=== PATIENT | female | born 1935 | race Caucasian/White ===

== ENCOUNTER 2021-11-25 10:45 | Outpatient (RCR) | payer MEDICARE, BC, SELFPAY | END 2022-10-19 08:43 | disposition home or self-care (01) | PROVIDERS: PCP Family Medicine; Visit Provider Orthopaedic Surgery Sports Medicine | DX: M40.209 Unspecified kyphosis, site unspecified (principal); M54.9 Dorsalgia, unspecified; G89.29 Other chronic pain; M25.511 Pain in right shoulder; M25.512 Pain in left shoulder; R53.1 Weakness; R26.9 Unspecified abnormalities of gait and mobility; Z51.89 Encounter for other specified aftercare | CPT/HCPCS: 97110; 97140 ==

== ENCOUNTER 2021-12-20 10:32 | Outpatient (CLI) | payer MEDICARE, BC, SELFPAY ==
--- NOTE | 2021-12-20 10:59 | CRLHL7_ITS ---
For Patients: As a result of the Cures Act, medical imaging exams and procedure reports are released immediately into your electronic medical record. You may view this report before your referring provider. If you have questions, please contact your health care provider. DIGITAL DIAGNOSTIC LEFT MAMMOGRAM WITH TOMOSYNTHESIS AND COMPUTER-AIDED DETECTION CLINICAL HISTORY: LEFT breast lumpectomy follow-up. COMPARISON: 12/17/2020, 12/17/2019. TECHNIQUE: Digital LEFT mammogram in two projections. Tomosynthesis utilized. BREAST COMPOSITION: There are areas of scattered fibroglandular density. FINDINGS: Normal fibroglandular tissue. Benign calcifications. No adenopathy or architectural distortion. IMPRESSION: Unremarkable LEFT breast mammograms. No evidence of malignancy. RECOMMENDATIONS: Routine screening mammography. Results and recommendations were discussed with the patient at the time of the exam. BI-RADS Category 2: Benign A lay language report of this examination will be provided to the patient. Dictated by Doug Ramos MD @ 12/20/2021 12:18:03 PM jj/Dictated by: Doug Ramos MD @ 12/20/2021 12:18:00 PM (Electronically Signed)
== END 2021-12-20 10:33 | disposition home or self-care (01) ==
LOC: MAMMO 10:35
PROVIDERS: PCP Family Medicine; Visit Provider Internal Medicine Hematology & Oncology
DX: Z85.3 Personal history of malignant neoplasm of breast (principal)
CPT/HCPCS: 77065; G0279

== ENCOUNTER 2022-01-13 10:25 | Outpatient (RCR) | payer MEDICARE, BC, SELFPAY | END 2022-07-12 23:59 | disposition home or self-care (01) | LOC: CCIC 10:25 | PROVIDERS: PCP Family Medicine; Visit Provider Internal Medicine Hematology & Oncology | DX: C50.919 Malignant neoplasm of unspecified site of unspecified female breast (principal); Z17.0 Estrogen receptor positive status [ER+] | CPT/HCPCS: 99212; 99214 ==

== ENCOUNTER 2022-04-12 11:22 | Outpatient (CLI) | payer MEDICARE, BC, SELFPAY ==
[2022-04-12 21:51] LABS: Chloride* 110 mmol/L (96-114); Sodium* 143 mmol/L (135-149)
[2022-04-12 21:52] LABS: Potassium* 4.3 mmol/L (3.6-5.1)
[2022-04-12 21:54] LABS: Alanine Aminotransferase* 15 U/L (4-35); Alkaline Phosphatase* 75 U/L (40-150); Aspartate Amino Transferase* 20 U/L (12-35); Bilirubin Total* 0.6 mg/dL (0.1-1.5); Blood Urea Nitrogen* 22 mg/dL (7-30); Calcium* 10.9 mg/dL (8.4-10.6); Carbon Dioxide* 26 mmol/L (20-32); Creatinine* 0.8 mg/dL (0.5-1.5); Estimated Glomerular Filt Rate 72 ml/min; Glucose* 109 mg/dL (60-115); Total Protein* 6.5 g/dL (6.0-8.3)
== END 2022-04-12 11:23 | disposition home or self-care (01) ==
PROVIDERS: PCP Family Medicine; Visit Provider Family Medicine
DX: I10 Essential (primary) hypertension (principal); K59.00 Constipation, unspecified; R07.89 Other chest pain
CPT/HCPCS: 80053

== ENCOUNTER 2022-04-19 15:09 | Outpatient (CLI) | payer MEDICARE, BC, SELFPAY ==
[2022-04-19 22:05] LABS: Vitamin D 25 Hydroxy* 65 ng/mL (30-80)
== END 2022-04-19 15:10 | disposition home or self-care (01) ==
PROVIDERS: PCP Family Medicine; Visit Provider Emergency Medicine
DX: E83.52 Hypercalcemia (principal)
CPT/HCPCS: 82306; 82310; 83970

== ENCOUNTER 2022-05-24 15:05 | Outpatient (CLI) | payer MEDICARE, BC, SELFPAY ==
[2022-05-24 22:05] LABS: Calcium* 10.2 mg/dL (8.4-10.6)
[2022-05-24 22:16] LABS: NT Pro B Type NatriureticPept* 2840 pg/mL
== END 2022-05-24 15:06 | disposition home or self-care (01) ==
PROVIDERS: PCP Family Medicine; Visit Provider Family Medicine
DX: I71.20 Thoracic aortic aneurysm, without rupture, unspecified (principal); R60.0 Localized edema; R06.09 Other forms of dyspnea; I10 Essential (primary) hypertension
CPT/HCPCS: 82310; 83880; 84443

== ENCOUNTER 2022-06-03 14:08 | Outpatient (CLI) | payer MEDICARE, BC, SELFPAY | END 2022-06-03 14:09 | disposition home or self-care (01) | LOC: RAD 14:08 | PROVIDERS: PCP Family Medicine; Visit Provider Family Medicine | DX: R06.02 Shortness of breath (principal); I51.7 Cardiomegaly; I35.1 Nonrheumatic aortic (valve) insufficiency; I31.39 Other pericardial effusion (noninflammatory) | CPT/HCPCS: 93306 ==

== ENCOUNTER 2022-10-27 13:43 | Outpatient (CLI) | payer MEDICARE, BC, SELFPAY ==
--- NOTE | 2022-10-27 14:00 | CRLHL7_ITS ---
For Patients: As a result of the Century Cures Act, medical imaging exams and procedure reports are released immediately into your electronic medical record. You may view this report before your referring provider. If you have questions, please contact your health care provider. DXA BONE MINERAL DENSITY STUDY Reason for exam: History of breast cancer. Current height (in): 63. Weight (lb): 208. Menopause age: 50. Ethnicity: White. 1. Have you had a previous hip or vertebral fracture? No. 2. Have you had any fractures during your adult life which did not result from significant trauma (e.g., auto accident)? No. 3. Did either of your parents have a hip fracture? No. 4. Do you smoke? No. 5. Have you ever taken Glucocorticoids? No. 6. Do you have rheumatoid arthritis? No. 7. Do you have secondary osteoporosis? No. 8. Do you drink 3 or more alcoholic drinks per day? No. 9. Are you being treated for osteoporosis? No. 10. Have you ever taken any of the following medications: Actonel, Evista, Fosamax, Miacalcin, Reclast, Boniva, Forteo, HRT (i.e., estrogen/hormone therapy), Protelos, Prolia, Vitamin D, Calcium, other ??? please specify. ANSWER: Yes, vitamin D and calcium. 11. Do you have any of the following medical conditions: Anorexia or bulimia, asthma or emphysema, end stage renal disease, hyperparathyroidism, any seizure disorders, cancer, inflammatory bowel diseases, hysterectomy, other ??? please specify. ANSWER: Yes, cancer. 12. What was your maximum height (inches)? 65. 13. Do you perform weight bearing exercise regularly? No. 14. Do you regularly consume dairy products? Yes. 15. Do you drink caffeinated beverages? No. If female: 16. At what age did your period start? 14. 17. Are you premenopausal? No. 18. How many full-term pregnancies have you had? 3. 19. Have you ever missed your period for more than 6 months in a row (not including or menopause)? No. TECHNIQUE: Bone mineral density study was performed using the R&V. FINDINGS: The results of the study expressed as bone mineral density (BMD) are as follows: Lumbar spine L2 to L4: BMD: 1.437 g/cm2. T-score: 3.3. Z-score: 6.2. Neck Left: BMD: 0.522 g/cm2. T-score: -2.9. Z-score: -0.4 Right: BMD: 0.627 g/cm2. T-score: -2.0. Z-score: 0.5 Total Left: BMD: 0.734 g/cm2. T-score: -1.7. Z-score: 0.6 Right: BMD: 0.779 g/cm2. T-score: -1.3. Z-score: 1.0 Radius Left 33%: BMD: 0.537 g/cm2. T-score: -2.6. IMPRESSION: Osteoporosis. *Comparison exams done prior to 09/2019 were performed on different unit, Lancope. COMPARISON: Compared with scan of 10/24/2019, the bone mineral density has increased by 2.9 percent at the spine, decreased by 10.7 percent at the hip, and decreased by 20.7 percent at the left forearm. Compared with scan of 09/20/2012, the bone mineral density has increased by 9.4 percent at the spine. Doug Ramos M.D. Diagnostic Radiologist [email or web address] RACHELE/joshua lewis/Dictated by: Doug Ramos MD @ 10/27/2022 3:09:00 PM (Electronically Signed)
== END 2022-10-27 13:44 | disposition home or self-care (01) ==
LOC: RAD 13:44
PROVIDERS: PCP Family Medicine; Visit Provider Family Medicine
DX: Z85.3 Personal history of malignant neoplasm of breast (principal); M81.0 Age-related osteoporosis without current pathological fracture
CPT/HCPCS: 77080

== ENCOUNTER 2022-11-10 13:31 | Outpatient (CLI) | payer MEDICARE, BC, SELFPAY | END 2022-11-10 13:32 | disposition home or self-care (01) | PROVIDERS: PCP Family Medicine; Visit Provider Family Medicine | DX: Z00.01 Encounter for general adult medical examination with abnormal findings (principal); E03.9 Hypothyroidism, unspecified; I10 Essential (primary) hypertension; E83.52 Hypercalcemia; E34.9 Endocrine disorder, unspecified; R32 Unspecified urinary incontinence; R06.02 Shortness of breath; G47.33 Obstructive sleep apnea (adult) (pediatric); R60.0 Localized edema; R79.89 Other specified abnormal findings of blood chemistry | CPT/HCPCS: 80053; 83880; 84443; 87086 ==

== ENCOUNTER 2023-02-17 10:37 | Outpatient (RCR) | payer MEDICARE, BC, SELFPAY ==
--- NOTE | 2022-12-29 09:22 | ONC.NURNOTE ---
Dx: Hypercalcemia, Hyperparathyroidism, Hypothyroidism, Osteoporosis
--- NOTE | 2023-01-03 12:58 | URNOTE ---
REceived request for prior auth for Prolia ([id number]). Per Tracy at [facility], , prior auth is not required. Call ref #[id number]
[2023-02-17 11:01] VITALS: BP 171/73; PULSE 70; RESP 16; TEMP 35.8; O2SAT 95
[2023-02-17] MEDS: DENOSUMAB 60 MG/ML SYRINGE SUBCUT (11:33)
--- NOTE | 2023-02-17 15:39 | ONC.NURNOTE ---
Reviewed labs and pts history with Mariola Isbell APRN . Per Mariola ahumada to give prolia
== END 2023-08-16 23:59 | disposition home or self-care (01) ==
LOC: CCIC 10:37
PROVIDERS: PCP Family Medicine; Referring Provider Family Medicine; Visit Provider Internal Medicine Hematology & Oncology
DX: M81.0 Age-related osteoporosis without current pathological fracture (principal); E83.52 Hypercalcemia; E21.3 Hyperparathyroidism, unspecified; E03.9 Hypothyroidism, unspecified; Z85.3 Personal history of malignant neoplasm of breast
CPT/HCPCS: 96372; J0897

== ENCOUNTER 2023-03-22 11:00 | Outpatient (RCR) | payer MEDICARE, BC, SELFPAY | END 2023-07-20 23:59 | disposition home or self-care (01) | PROVIDERS: PCP Family Medicine; Visit Provider Family Medicine | DX: M62.838 Other muscle spasm (principal); M62.830 Muscle spasm of back; R32 Unspecified urinary incontinence; M51.36 Other intervertebral disc degeneration, lumbar region; M54.9 Dorsalgia, unspecified; G89.29 Other chronic pain; M54.2 Cervicalgia; M54.50 Low back pain, unspecified; Z51.89 Encounter for other specified aftercare | CPT/HCPCS: 82310; 82565; 84100; 97110; 97140; 97161 ==

== ENCOUNTER 2023-04-14 11:59 | Outpatient (CLI) | payer MEDICARE, BC, SELFPAY ==
--- NOTE | 2023-04-14 13:40 | CRLHL7_ITS ---
For Patients: As a result of the Cures Act, medical imaging exams and procedure reports are released immediately into your electronic medical record. You may view this report before your referring provider. If you have questions, please contact your health care provider. BILATERAL SCREENING MAMMOGRAM WITH COMPUTER-AIDED DETECTION AND TOMOSYNTHESIS TECHNIQUE: CC and MLO views were obtained. These mammographic images have been obtained using full-field digital technique. These mammographic images were interpreted with the benefit of computer-aided detection. Breast Tomosynthesis was used in this interpretation. COMPARISON FILM: 12/20/21, 12/17/20, 12/17/19. FINDINGS: There are scattered areas of fibroglandular density IMPRESSION: There is no radiographic evidence for malignancy. ASSESSMENT: BI-RADS Category 2: Benign RECOMMENDATION: Routine screening mammogram in 1 year. A lay language report of this examination will be provided to the patient. REINIER SOUZA MD Diagnostic/Nuclear Medicine Radiologist [email or web address] HAWK/arrone be/Dictated by: Reinier Souza MD @ 04/17/2023 8:37:00 AM (Electronically Signed)
== END 2023-04-14 12:00 | disposition home or self-care (01) ==
LOC: MAMMO 12:01
PROVIDERS: PCP Family Medicine; Visit Provider Family Medicine
DX: Z12.31 Encounter for screening mammogram for malignant neoplasm of breast (principal)
CPT/HCPCS: 77063; 77067

== ENCOUNTER 2023-10-06 11:11 | Outpatient (CLI) | payer MEDICARE, BC, SELFPAY | END 2023-10-06 11:12 | disposition home or self-care (01) | LOC: LKVREF 11:13 | PROVIDERS: PCP Family Medicine; Visit Provider Family Medicine | DX: R05.9 Cough, unspecified (principal); I10 Essential (primary) hypertension; E83.52 Hypercalcemia; E03.9 Hypothyroidism, unspecified; E34.9 Endocrine disorder, unspecified; R06.02 Shortness of breath | CPT/HCPCS: 80053; 80061; 83735; 83880; 84100; 84443 ==

== ENCOUNTER 2023-10-27 09:38 | Outpatient (CLI) | payer MEDICARE, BC, SELFPAY | END 2023-10-27 09:39 | disposition home or self-care (01) | LOC: RAD 09:38 | PROVIDERS: PCP Family Medicine; Visit Provider Family Medicine | DX: I35.2 Nonrheumatic aortic (valve) stenosis with insufficiency (principal); R06.02 Shortness of breath; I35.0 Nonrheumatic aortic (valve) stenosis; I35.1 Nonrheumatic aortic (valve) insufficiency; I07.1 Rheumatic tricuspid insufficiency; I34.0 Nonrheumatic mitral (valve) insufficiency | CPT/HCPCS: 93306 ==

== ENCOUNTER 2023-10-31 10:21 | Outpatient (CLI) | payer MEDICARE, BC, SELFPAY | END 2023-10-31 10:22 | disposition home or self-care (01) | PROVIDERS: PCP Family Medicine; Visit Provider Family Medicine | DX: M81.0 Age-related osteoporosis without current pathological fracture (principal); E34.9 Endocrine disorder, unspecified | CPT/HCPCS: 82310; 83970 ==

== ENCOUNTER 2024-02-16 11:06 | Outpatient (CLI) | payer MEDICARE, BC, SELFPAY ==
--- NOTE | 2024-02-16 11:15 | CRLHL7_ITS ---
For Patients: As a result of the Century Cures Act, medical imaging exams and procedure reports are released immediately into your electronic medical record. You may view this report before your referring provider. If you have questions, please contact your health care provider. INDICATION: AUB, vaginal bleeding COMPARISON: none TECHNIQUE: 2D mancuso scale and color Doppler images were acquired of the pelvis using a transabdominal and transvaginal approach. FINDINGS: Sonographic images demonstrate a normal size and smooth outer contour of the uterus. Uterus measures 6.2 cm in length by 3.8 cm in AP diameter by 5.1 cm in transverse dimension. Calcified fibroid is present in the uterine fundus. The endometrial lining measures 17 mm in composite thickness. Multiple cervical nabothian cysts are present. The ovaries are not visualized. There are no suspicious fluid collections within the cul-de-sac. IMPRESSION: Diffusely thickened endometrium measuring 17 millimeters. Dictated by Doug Ramos MD @ 02/19/2024 4:36:10 PM (Electronically Signed)
== END 2024-02-16 11:07 | disposition home or self-care (01) ==
LOC: US 11:07
PROVIDERS: PCP Family Medicine; Visit Provider Family Medicine
DX: N93.9 Abnormal uterine and vaginal bleeding, unspecified (principal); R93.89 Abnormal findings on diagnostic imaging of other specified body structures
CPT/HCPCS: 76830; 76856

== ENCOUNTER 2024-02-21 11:45 | Outpatient (RCR) | payer MEDICARE, BC, SELFPAY ==
--- NOTE | 2023-11-09 19:14 | PT.OPE ---
PT [facility] Eval PT [facility] Out[facility] Eval Start: 11/09/23 18:17 Freq: Status: Active Protocol: Document 11/09/23 19:03 BMS (Rec: 11/09/23 19:13 BMS [id number]) E-signed By Arleen Ayala PT Physical Therapy Outpatient Evaluation Insurance Information Recert Due Date 02/06/24 Insurance Name Medicare B Provider Fax Number internal Medical Diagnosis M62.830 back spasm Treating Diagnosis low back pain M54.50 R hip pain M25.551 Imaging Report Information lumbar spine xray 10/24/23 in EMR 1. [id number] lumbar degenerative changes. 2. Suspected abdominal aortic aneurysm can be confirmed by ultrasound, if not recently performed. 3. Right upper quadrant density may be outside the patient. This was not present on the recent comparison chest radiograph and may be of no clinical significance. Referring MD Yang Pillai MD NPI# [id number] Subjective Subjective Pain started October 13 in bed, was sharp and sudden, couldnt roll over or move hardlyu at all, legs not support. tried heat, tylenol, aspercreme and rest that seems to help some. went to urgent care 10 days later, they did xrays showed a lot of arthritis in my back. trouble putting on shoes, dressing LE, gait etc. dont really go shopping at all bc pain and energy do a lot of online shopping. cant walk that far without out of breath and pain, same for standing, cant do housework. have meals brought in (live in assisted living) Pain Comments 3/10 currently, up to 8/10 worst R lowback to sacrum, piriformis and glute Current Work Status Retired Precautions Treatment Precautions/Contraindications hx breast cancer, breathing issues, poss aortic aneurysm, degenerative disease of spine, obesity, gait abnormality, imbalance Objective Range of Motion forward flex ~ 10, ext 2-3 past neutral, R SB limited due to R pain B knee ext to 0, DF to neutral passively. hip difficult to assess due to weakness and imbalance in standing and sitting positions Strength MMT seated R LE hip flex, quad , HS, ankle DF 4-/5. R PF and inversion 3/5, eversion 4/5 L hip flex and eversion 4/5. quad and HS 5/5 L ankle PF DF 4+/5. inversion 3/5 Swelling minimal to no edema noted this date in legs Palpation mod+ tenderness through gluteals, piriformis, hip abductors and lumbar paraspinals keyana along SI and iliac crests. ropiness and trigger points noted in glutes and piriformis R worse then left. mod tender along ischial tubs Balance & Gait uses 4WW with heavy reliance upon UE to offload painful limb this date. balance require hip flex knee flex and hanging on to table. slow foor flat strides with limited stride length. Posture head forward, increased thoracic kyphosis, flattened lumbar lordosis Sensation/Reflexes appears intact to light touch Functional Test Performed & Score minimal testing available due to sensitivity of patient condition and level of apprhension. Assessment Assessment/Impression Patient is pleasant 88 yo female referred to physical therapy for lumbar back spasm. She reports incident on October 13 where in she was in bed and felt a sharp pain in buttock/glute/LB region. States pain was 8/10, could hardly move and had great trouble with mobility. She went to urgent care ~ 10 days later, lumbar xray was performed (see above) indicating she had multiple levels of degeneration and incidental findings of poss aortic aneurysm. Today she rates pain in R L5 to SI, glute/piriformis and iliac regions as 3/10. worst as 8/10 . She has used heat, tylenol, aspercreme, and a few times gentle stretching to manage pain. Aggrevating factors include forward bend, back bend, bending right, reaching, lifting, standing, sit to stand and bed mobility. She declines any supine or sidleying positioning this date, mobility deficits and body habitus prevent prone positioning. Patient presents today with impaired strength and balance, tenderness through glute, piriformis, along R sacrum and into L4-5 distribution. Radicular features not noted today with testing, does indicate pain can go down leg and indicates she has had some numbness through right anterior thigh. Unable to fully assess vertebral mobility and positioning due to only tolerating seated and supported standing position. Patient has extensive hx of chronic health issues including hx breast cancer, poss aortic aneurysm, breathing and allergic challenges, edema (currently managed with new med) and uses 4WW for all community mobility though does cruise apartment without it. She responded well to manual and basic exercises this date with complete resolution of pain per patient however I suspect soreness will return this night. Patient has responded well to physical therapy intervention in the past and anticipate she will again this episode of care. Primary Functional Limitations sit stand bend sleep, roll over, gait, balance, posture, pain Plan of Care Rehabilitation Potential Good Physical Therapy Goals 1) Patient will demonstrate I HEP and self care/home mgmt techniques for pain management, core stability and ROM. 2 ) Pt report pain <2-3/10 with activity and provocative positions rolling over in bed , standing up, getting out of car 3) Pt report pain not interrupting sleep more than 2x/ week without use of medication. 4)Pt demo ability to participate in clinic and home strengthening program for core, hip, LE and balance. Coordination/Communication With Referral Source Treatment Plan/Direct Interventions Compression Garments, Electrical Stimulation,Gait Training,Heat,Ice/Cold/ Vasopneumatic,Manual Therapy, Neuromuscular Re-ed,Orthotics/ Braces,Self-Care/Home Management,Therapeutic Activities,Therapeutic Exercises Frequency/Duration 1-2x/ week x 6 weeks Patient Will Be Discharged From Therapy Completion of LTG(s),Skills Plateau,Independent w/HEP, Independently Progressing Evaluation Billing Untimed Code Treatment Minutes 30 Complexity Moderate Certification Information Initial Certification Date 11/09/23 Ending Certification Date 02/06/24 Provider Signature Required Yes Provider Signature Shows Agreement With POC & Medical Necessity Physician NPI Number Write NPI# Here Physician Comment/Change : Physician Signature & Date Requested Please Sign/Date Here
== END 2024-06-11 10:36 | disposition home or self-care (01) ==
PROVIDERS: PCP Family Medicine; Visit Provider Family Medicine
DX: M62.830 Muscle spasm of back (principal); M54.9 Dorsalgia, unspecified; M25.551 Pain in right hip; Z51.89 Encounter for other specified aftercare
CPT/HCPCS: 97032; 97110; 97140; 97162

== ENCOUNTER 2024-05-20 15:33 | Outpatient (CLI) | payer MEDICARE, BC, SELFPAY | END 2024-05-20 15:34 | disposition home or self-care (01) | LOC: NFLDREF 05-22 01:58 | PROVIDERS: PCP Family Medicine; Referring Provider Family Medicine; Visit Provider Family Medicine | DX: I10 Essential (primary) hypertension (principal); M81.0 Age-related osteoporosis without current pathological fracture; Z01.818 Encounter for other preprocedural examination | CPT/HCPCS: 80048 ==

== ENCOUNTER 2024-06-04 09:08 | Day surgery (SDC) | payer MEDICARE, BC, SELFPAY ==
--- OUTSIDE RECORDS SUMMARY | 2024-06-04 09:10 | XMS_ITS | Clinical Summary ---
Author Organization [employer] [facility] Address [place], [place] [address] Care Team Providers Care Set And Exhibit Designer Name Role Phone Alvarado Hodgson MD Primary Care Provider [phone] Allergies Active Allergy Reactions Criticality Noted Date Comments Propoxyphene-Acetaminoph en Edema 07/05/2005 Ethylenediamine Hives 03/19/2008 Ibuprofen Angioedema 12/23/2010 Latex Rash 12/23/2010 Morphine Nausea Only,Dizziness 03/06/2006 Nystatin Other - Describe In Comment Field 03/19/2008 Exaserbated patient lichen planus Unlisted Allergen (Include Detail In Comments) 03/19/2008 CARBA MIX- indicated on patch test PHENYL FORMALDEHYDE RESIN 2 - indicated on patch test NATURAL FRAGRANCE MIX Indicated on patch test Oxycodone Nausea And Vomiting 11/29/2021 Quinine Nausea Only 03/06/2006 Shellfish Containing Products Nausea And Vomiting 02/10/2011 Sulfa (Sulfonamide Antibiotics) Rash 03/06/2006 Sulfamethoxazole-Trimeth oprim Hives 03/19/2008 Tramadol-Acetaminophen Edema,Constipation Low 07/05 Rofecoxib Edema 07/05/2005 Medications CALCIUM CARBONATE 1,250 MG ORAL TAB QD ? 0 4 Active VITAMIN C 500 MG ORAL TAB QD ? 0 4 Active MULTIVITAMIN ORAL CAP QD ? 0 4 Active SENNA 8.6 MG TAB 0 7 Active METROGEL 0.75 % TOPICAL Apply to affected areas twice daily as directed 45 0 8 Active MIRALAX 17 GRAM (100 %) ORAL POWDER PACKETIndications :Unspecified constipation take 1 packet q day mixed with water 30 days 1 8 Active TRIAMCINOLONE ACETONIDE 0.5 % TOPICAL CREAM use as directed prn 0 0 9 Active MEDICATION ORDER COMPOSERIndicatio ns:Malignant neoplasm of breast (female), unspecified site Breast Prosthesis- right and 3 bras dx- breast cancer 1 0 9 Active ASPIRIN 325 MG TAB, DELAYED RELEASE 2 tabs in the morning and prn 0 9 Active COLACE 100 MG CAPIndications:Un specified constipation 1 cap orally bid 0 0 9 Active Lidocaine HCl 3 % Lotn Apply topically to affected area(s). Active levothyroxine (SYNTHROID) 75 mcg tablet Take 75 mcg by mouth once daily. Active fexofenadine-pseu doephedrine, 180-240 MG, (ROOSEVELT-D 24 HOUR) 180-240 mg per tablet Take by mouth once daily. 0 4 Active losartan (COZAAR) 25 mg tablet Take 1 tablet by mouth once daily. 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 Had repeat , showed stable ascending thorasic aneurysm at 4.5cm. Has seen vascular for evaluation, recommend repeat scan annually. Also recommended echocardiogram. Pulmonary nodules 02/28/2008 Overview (02/28/2008): Followed by pulmonary Obstructive sleep apnea (adult) (pediatric) 09/30 Overview (10/25/2006): uses CPAP Allergic rhinitis, cause unspecified 10/25/2006 Overview (10/25/2006): seasonal allergies allergies- immunotherapy~ Rosacea 10/25/2006 Overview (10/25/2006): [place]- followed by derm Malignant neoplasm of breast (female), unspecifi ed site 10/25/2006 Overview (10/25/2006): Breast CA 1976, s/p mastectomy and chemo~ Resolved Problems Problem Noted Date Diagnosed Date Resolved Date Periapical abscess without sinus 07/05/2005 10/02/2008 Immunizations Name Administration Dates Next Due Influenza A (H1N1), Inactivated (Age >=3 Years) 05/13/2009 Influenza, IIV3 (Age >=3 years) 02/22/2005 Pneumococcal Poly,23-Valent (Pneumovax) 02/23/20 05 Td, Preservative Free (age >= 7 Years) 8 Zoster (Zostavax-ZVL, live) 01/14/2009 Family History Medical History Relation Name Comments Heart Disease Father Other Father CHF Genetic Other father age 73 CHF~mother CAD, age 66 [address] [place] associated with flu~brother CAD, age 43 from [place]~no CA, DM, HTN Cancer-breast Paternal Aunt Relation Name Status Comments Father Maternal Grandfather Maternal Grandmother Mother Other Paternal Aunt Paternal Grandfather Paternal Grandmother Social History Tobacco Use Types Packs/Day Years Used Date Smoking Tobacco: Never Smokeless Tobacco: Never Alcohol Use Standard Drinks/Week Comments No 0 (1 standard drink = 0.6 oz pur e alcohol) Comments No Sex and Gender Information Value Date Recorded Sex Assigned at Not on file Legal Sex Female 5:49 AM PROGRAM DEVELOPMENT MANAGER Gender Identity Not on file Sexual Orientation Not on file Obstetrics History Para Term AB IAB SAB Ectopic Multiple Livin g Live Births 3 3 3 0 0 0 0 0 0 3 Date Outcome GA Total Labor Labor/2nd/3rd Weight Sex Type Anes PTL Chrissie A1 A5 Name Clin Term Term Term Last Filed Vital Signs Vital Sign Reading Time Taken Comments Blood Pressure 142/80 08/03/2018 11:14 AM CDT Pulse 77 08/03/2018 11:14 AM CDT Temperature 36.2 C (97.1 F) 02/10/2011 9:14 AM CDT Respiratory Rate 18 02/10/2011 9:44 AM CDT Oxygen Saturation 98% 02/10/2011 9:44 AM CDT Inhaled Oxygen Concentration - - Weight 123.3 kg (271 lb 13.2 oz) 02/10/2011 7:00 AM CDT Height 162.6 cm (5' 4) 02/10/2011 7:00 AM CDT Body Mass Index 46.66 02/10/2011 7:00 AM CDT Plan of Treatment Health Maintenance Due Date Last Done Comments Tdap 1946 Depression screening for age 12+ 1948 BMI (ht and wt on same day) for age 18+ 1954 Medicare Wellness for age 65+ 2001 Pneumococcal series for age 50+ (2 of 2 - PCV) 02/22/2006 02/22/2005 Zoster (shingles) series for age 50+ (1 of 2) 03/11/2009 01/14/2009 RSV vaccine for adults or (1 - 1-dose 75+ series) 2011 Tetanus booster 03/19/2018 03/19/2008 COVID-19 vaccine series ( season) 2023 11/24/2021, 03/09/2021, 07/07/2020, Additional history exists Influenza for age 65+ 12/31/2023 05/13/2009, 005 DEXA/DXA scan for age 65+ Completed 04/01/2008 Medical Devices Implanted Type Area Human Resources Compliance Manager Device Identifier Shelf Expiration Date Model / Serial / Lot Lens Iol 18.5 Dpt Tecnis - [id number] Implanted:Qty: 1 on 12/23/2010 at [facility] Left: [employer] [id number]# / [id number] / Lens Iol 19.0 Dpt Tecnis - [id number] Implanted:Qty: 1 on 02/10/2011 at [facility] Right: [employer] [id number]# / [id number] / Procedures Procedure Name Priority Date/Time Associated Diagnosis Comments XR DXA BONE DENSITY 2 SITES AXIAL Routine 04/01/2008 10:58 AM PROGRAM DEVELOPMENT MANAGER Special Screening for Osteoporosis from Last 3 Months or Most Recently Relevant to Health Maintenance Results * XR DEXA BONE DENSITY 2 SITES (04/01/2008 10:58 AM PROGRAM DEVELOPMENT MANAGER) Anatomical Region Laterality Modality Spine, HIPS, HIPL, HIPR Other 04/01/2008 10:5 8 AM PROGRAM DEVELOPMENT MANAGER Narrative 04/02/2008 1:41 PM PROGRAM DEVELOPMENT MANAGER Please see scanned document for results of this study. Procedure Note Jasmyne Meyers PA - 04/03/2008 Please see scanned document for results of this study. Diamond Magallanes MD DEXA Lilly l Result from Last 3 Months or Most Recently Relevant to Health Maintenance Insurance [id number] [place] [id number] MEDICARE [place] ONLY MEDICARE PART B HB ONLY MEDICARE PART A [place] ONLY BLUE CR[place] OF [place] Advance Directives * Full Code (Latest Code Status on File) Date Activated Date Inactivated Comments 02/10/2011 2:57 AM 02/10/2011 12:28 PM * Full Code Date Activated Date Inactivated Comments 12/23/2010 8:26 AM 12/23/2010 2:38 PM Care Teams Set And Exhibit Designer Relationship Specialty Start Date End Date Alvarado Hodgson MD [address] [place] [id number] PCP - General Family Practice 12/25/20
--- OUTSIDE RECORDS SUMMARY | 2024-06-04 09:11 | XMS_ITS | Referral Summary ---
Author Organization [facility] Address [address] [place] [address]. [place] [address] Care Team Providers Care Eyeglass Assembler Name Role Phone No Ref-Primary, Physician Primary Care Provider Allergies Active Allergy Reactions Criticality Noted Date Comments Aminoglycosides 06/07/2019 Azelastine Low 06/07/2019 Bacitracin High 06/07/2019 Celecoxib 06/07/2019 Ethylenediamine Hives 03/19/2008 Ibuprofen Swelling High 12/23/2010 Latex Rash Low 12/23/2010 Losartan Low 06/07/2019 Montelukast Low 06/07/2019 Morphine Other (See Comments),Nausea Low 03/06/2006 Naproxen Low 06/07/2019 Neomycin 06/07/2019 No Clinical Screening - See Comments High 03/19/2008 CARBA MIX- indicated on patch test PHENYL FORMALDEHYDE RESIN 2 - indicated on patch test NATURAL FRAGRANCE MIX Indicated on patch test Nystatin Other (See Comments) High 03/19/2008 Exaserbated patient lichen planus Penicillin V High 06/07/2019 Peppermint Flavoring Agent (Non-Screening) 06/07/2019 Phenol 06/07/2019 Propoxyphene Low 06/07/2019 Propoxyphene N-Apap Swelling 07/05/2005 Quinine Nausea Low 03/06/2006 Rofecoxib Swelling Low 07/05/2005 Shellfish Allergy Nausea and Vomiting 02/10/2011 Spearmint Flavoring Agent (Non-Screening) 06/07/2019 Sulfa Antibiotics Rash Low 03/06/2006 Sulfamethoxazole-Trimeth oprim Hives 03/19/2008 Tramadol-Acetaminophen Swelling Low 07/05/2005 Medications aspirin 81 MG EC tablet Take 325 mg by mouth daily Active acetaminophen (TYLENOL) 325 MG tablet Take 500 mg by mouth every 6 hours as needed for mild pain Active metoprolol tartrate (LOPRESSOR) 25 MG tablet Take 25 mg by mouth 2 times daily Active traMADol (ULTRAM) 50 MG tablet Take 50 mg by mouth every 6 hours as needed for severe pain Active azelastine (ASTELIN) 0.1 % nasal spray [place] 1 spray into both nostrils 2 times daily Active triamcinolone (NASACORT) 55 MCG/ACT nasal aerosol [place] 2 sprays into both nostrils daily Active fexofenadine (ROOSEVELT) 180 MG tablet Take 180 mg by mouth daily Active levothyroxine (SYNTHROID/LEVO THROID) 100 MCG tablet Take 100 mcg by mouth daily Active alendronate (FOSAMAX) 70 MG tablet Take 70 mg by mouth every 7 days Active doxycycline hyclate (VIBRA-TABS) 100 MG tablet Take 100 mg by mouth 2 times daily Active methocarbamol (ROBAXIN) 750 MG tablet Take 750 mg by mouth 4 times daily as needed for muscle spasms Active letrozole (FEMARA) 2.5 MG tablet Take 2.5 mg by mouth daily Active multivitamin w/minerals (MULTI-VITAMIN) tablet Take 1 tablet by mouth daily Active vitamin D3 (CHOLECALCIFERO L) 1.25 MG (55890 UT) capsule Take 2,000 Units by mouth every 7 days Active calcium carbonate-vitam in D (OSCAL W/D) 500-200 MG-UNIT tablet Take 1 tablet by mouth 2 times daily Active polyethylene glycol (MIRALAX/GLYCOL AX) packet Take 1 packet by mouth daily Active docusate sodium (COLACE) 100 MG tablet Take 100 mg by mouth daily Active Social History Tobacco Use Types Packs/Day Years Used Date Smoking Tobacco: Never Smokeless Tobacco: Never Tobacco Cessation:Counseling Given: Yes Adolescent Education Answer Date Record ed Getting School Help Needed Not on file 02/05 Comments No Sex and Gender Information Value Date Recorded Sex Assigned at Not on file Legal Sex Female 4:17 AM CROP ADJUSTER Gender Identity Not on file Sexual Orientation Not on file Last Filed Vital Signs Vital Sign Reading Time Taken Comments Blood Pressure 118/74 06/07/2019 10:22 AM CROP ADJUSTER Pulse - - Temperature - - Respiratory Rate - - Oxygen Saturation - - Inhaled Oxygen Concentration - - Weight 112.5 kg (248 lb) 06/07/2019 10:22 AM CROP ADJUSTER Height 163.8 cm (5' 4.5) 06/07/2019 10:22 AM CS T Body Mass Index 41.91 06/07/2019 10:22 AM CROP ADJUSTER Plan of Treatment Not on file Insurance MEDICARE BCBS OUT OF STATE Care Teams Eyeglass Assembler Relationship Specialty Start Date End Date No Ref-Primary, Physician PCP - General 06/07/19
--- OUTSIDE RECORDS SUMMARY | 2024-06-04 09:11 | XMS_ITS | Continuity of Care Document ---
Author Organization [facility] Address [address] [place] [address] Phone Care Team Providers Care Repair Operator Name Role Phone Unavailable Unavailable Unavailable Allergies, Adverse Reactions, Alerts Substance Reaction Status Criticality HYDROCODONE BITARTRATE Active No In formation acetaminophen Active No Information quinine Active No Information sulfanilamide Active No Information Penicillins Active No Information morphine Active No Information Medications Medication Instructions Dosage Effective Dates (start - stop) Status Comments ROOSEVELT (unknown strength) Not Available - Active ASPIRIN (unknown strength) Not Available - Active TYLENOL (unknown strength) Not Available - Active CLOBETASOL PROPIONATE (unknown strength) Not Available - Active FLUOCINOLONE ACETONIDE (unknown strength) Not Available - Active TRIAMCINOLONE (unknown strength) Not Available - Active ANECREAM (unknown strength) Not Available - Active PROTOPIC (unknown strength) Not Available - Active 3-DAY VAGINAL CREAM (unknown strength) Not Available - Active METRONIDAZOLE (unknown strength) Not Available - Active SYNTHROID (unknown strength) Not Available - Active VITAMIN E (unknown strength) Not Available - Active VITAMIN C (unknown strength) Not Available - Active CALCIUM 500 + VITAMIN D (unknown strength) Not Available - Active Procedures Procedure Date Office/Outpatient Visit,[facility] [place] 2012 Advance Directives Directive Yes / No Effective Date File Name No Information Encounters Encounter Description Practice Location Reason(s) For Visit Diagnoses Date Provider Providers Copied on Encounter [facility], [address], [place], [address], [place] tel:[phone] [facility] Cheli No Information 3 No Information [facility], [address], [place], [address], [place] tel:[phone] [facility] LICHEN Isidra sandoval Apnea 3 Eugene Bajwa. [facility], [address], [address], [place], [place], [id number], [place]. tel:[phone] Office/Outpa tient Visit,[facility] [place] [facility], [address], [place], [address], [place] tel:[phone] [facility] Jessica No Information 3 Maged Moon. [facility], [address], [place], [place], [id number], [place]. tel:[phone] Referring Provider: Galindo Salgado, [facility] [address] [place] [address], [address]. tel:[phone] Family History Family Member Type Diagnosis Age At Onset Problem (finding) Problem (finding) Payers Payer name Insurance type Covered republican ID Authorevia tiallison(s) Medicare [id number] [facility] [address] Out Of State [id number] Social History Type Description Quantity Date Captured Comments Sex Female Smoking Status No Information Chief Complaint And Reason For Visit No Information Reason For Referral Reason For Referral No Information History Of Present Illness Encounter Date Complaint History Of Prese nt Illness No Information Functional Status Date Functional Assessmen t No Information Instructions Date Instruction Additional Infor mation No Information Assessments Type Assessment Date No Information Patient Care Teams Name Effective Dates (start - stop) Status Members No Information
--- OUTSIDE RECORDS SUMMARY | 2024-06-04 09:11 | XMS_ITS | Clinical Summary ---
Author Organization [facility] Address [address] [place] [address]. [place] [address] Care Team Providers Care Offc Spec Name Role Phone No Ref-Primary, Physician Primary [...] Active azelastine (ASTELIN) 0.1 % nasal spray [place] 1 spray into both nostrils 2 times daily Active triamcinolone (NASACORT) 55 MCG/ACT nasal aerosol [place] 2 sprays into both nostrils daily Active [...] Active vitamin D3 (CHOLECALCIFERO L) 1.25 MG (45531 UT) capsule Take 2,000 Units by mouth [...] on file Legal Sex Female 4:17 AM FORENSIC MATERIALS ENGINEER Gender Identity Not on file Sexual Orientation Not on file Last Filed Vital Signs Vital Sign Reading Time Taken Comments Blood Pressure 118/74 06/07/2019 10:22 AM FORENSIC MATERIALS ENGINEER Pulse - - Temperature - - Respiratory Rate - - Oxygen Saturation - - Inhaled Oxygen Concentration - - Weight 112.5 kg (248 lb) 06/07/2019 10:22 AM FORENSIC MATERIALS ENGINEER Height 163.8 cm (5' 4.5) 06/07/2019 10:22 AM CS T Body Mass Index 41.91 06/07/2019 10:22 AM FORENSIC MATERIALS ENGINEER Plan of Treatment Not on file Insurance MEDICARE BCBS OUT OF STATE Care Teams Offc Spec Relationship Specialty Start Date End Date No Ref-Primary, Physician PCP - General 06/07/19
[2024-06-04] MEDS: 0.9 % SODIUM CHLORIDE 500 ML 500 ML 100 ML IV (09:38)
[2024-06-04] MEDS: LACTATED RINGERS 1000 ML 1,000 ML 100 ML IV (09:38)
[2024-06-04] MEDS: SODIUM CHLORIDE 0.9 % (FLUSH) 10 ML SYRINGE IVF (09:38)
[2024-06-04 09:42] VITALS: BP 187/77; PULSE 62; RESP 16; TEMP 36.6; O2SAT 95; BMI 35.7
[2024-06-04 09:49] LABS: Hemoglobin* 13.7 gm/dL (12.0-16.0)
[2024-06-04 09:59] LABS: Creatinine* 0.8 mg/dL (0.5-1.5); Est. Creatinine Clearance* 32.17; Estimated Glomerular Filt Rate 71 ml/min
--- NOTE | 2024-06-04 10:37 | W.PM.H&PU ---
History & Physical Update History & Physical Update H&P Reviewed and patient assessed: The following changes are noted below (Dr. Pillai noted an abnormal EKG recommended a repeat EKG but that was not done prior to her surgery. )
--- NOTE | 2024-06-04 10:54 | P.PCN_ITS ---
Procedure Note Date Seen: 06/04/24 Date of procedure: 06/04/24 Will [facility] bill your pro fee for this procedure?: Yes Procedure: Preoperative diagnosis: 89 year-old with postmenopausal bleeding and thickened endometrium on ultrasound Postoperative diagnosis: Same. Vulvar varicosities. Vulvar, mons and groin fold eccymosis. Inflamed external hemorrhoids. Procedure: Ultrasound-guided Hysteroscopy, Dilation and Curettage using the Truclear incisor. Vulvar biopsy Anesthesia: Conscious sedation, paracervical block. Surgeon: Makenzie Reyes MD Signal Integrity Engineer: None Estimated blood loss: 25 mL IV Fluid: 250 mL Specimen: 1. Endometrial curettings. 2. L vulvar biopsy of the L labia majus. Findings: External genitalia are not normal. Multiple vulvar varicosities and the entire vulva law, mons and into the patient's groin folds heavy large ecchymoses. The patient denied trauma. She states that she has that rash because there are bugs in her apartment. I told her that this does not look consistent with insect bites. Large external hemorrhoids that were inflamed. Exam under anesthesia: Uterus: Mid position, less than 10 week size, mobile, with no masses or nodularity palpable. Uterus sounded to 10 cm. No adnexal masses or nodularity palpable. On hysteroscopy: Irregular endometrial growths with significant neovascularization concerning for malignancy. Procedure: Megan Trejo was taken to the operating operating room more conscious sedation was found to be adequate. The patient was placed on in the dorsal lithotomy position and an exam under anesthesia was performed with findings stated above. She was then prepped and draped in a normal sterile manner. A varner catheter was placed and her bladder back-filled with 250mL of saline, the varner was then clamped with a Nichole clamp. A bivalve speculum was placed in the vagina. Other sethi no abnormalities. The paracervical block was placed using 0.5% Marcaine, 10 mL was injected at the 4 and 8 o'clock positions on the cervix. The anterior lip of the cervix was grasped with single-toothed tenaculum. The cervix was dilated with ultrasound guidance to minimize the chance of forming a false channel or causing a uterine perforation. The cervix dilated to [place] 6. The uterus sounded to 10 cm. The Truclear hysteroscope was advanced into the uterus. A diagnostic hysteroscopy was performed with normal saline as the insufflation medium. Findings are stated above. The Truclear incisor was then advanced through the camera. The curettage was performed with the incisor over an approximately 5 minutes. The incisor was then removed. Visualization was limited secondary to bleeding. A sharp curettage was performed to obtain additional specimen. Saline deficit at the end of the procedure 100 mL. Total saline used 2190 mL. Nothing was needed for hemostasis. The hysteroscope, tenaculum and speculum were removed from the vaginal canal. Attention was then turned to performing the vulvar biopsy. The base of a 1 x 1 cm mass that appeared to be either a cyst or varicosity was instilled with 5 mL of 0.5% Marcaine. This mass was removed from its base with the scissors and sent pathology. The base was then cauterized to obtain hemostasis and 6 sutures of 3-0 Vicryl in interrupted manner were placed. The patient tolerated the procedure well. Sponge, lap and instrument counts were correct x2 at the end of the procedure. The patient was taken to the recovery area in stable condition.
--- NOTE | 2024-06-04 11:59 | SUR.OPER ---
fluid used 2190 ml and 100 ml fluid deficit
[2024-06-04] MEDS: BUPIVACAINE 0.5% 30 ML INJECTION (12:00)
[2024-06-04 12:11] VITALS: BP 182/112; PULSE 72; RESP 16; TEMP 36.7; O2SAT 93
[2024-06-04 12:15] VITALS: BP 186/86; PULSE 68; RESP 16; O2SAT 94
--- NOTE | 2024-06-04 12:21 | P.ANES_ITS ---
Anesthesia Charges Start Date/Time Anesthesia Start Date: 06/04/24 Anesthesia Start Time: 11:13 Stop Date/Time Anesthesia Stop Date: 06/04/24 Anesthesia Stop Time: 12:15 Coding CPT Codes CPT Codes: ANESTH HYSTEROSCOPE/GRAPH - 52231 ([id number]) P2 - PATIENT W/MILD SYST DISEASE, QK - POWERHOUSE LABORER 2-4 CNCRNT ANES PROC, QX - COMPLIANCE PROGRAM MANAGER SVC W/ MD MED DIRECTION
--- NOTE | 2024-06-04 12:21 | W.ANESCHARGE ---
Anesthesia Charges Start Date/Time Anesthesia Start Date: 06/04/24 Anesthesia Start Time: 11:13 Stop Date/Time Anesthesia Stop Date: 06/04/24 Anesthesia Stop Time: 12:15 Coding CPT Codes CPT Codes: ANESTH HYSTEROSCOPE/GRAPH - 93739 ([id number]) P2 - PATIENT W/MILD SYST DISEASE, QK - CITY PLANNING ENGINEER 2-4 CNCRNT ANES PROC, QX - REMEDIAL MASSEUR SVC W/ MD MED DIRECTION
--- NOTE | 2024-06-04 12:22 | P.ANES_ITS ---
Anesthesia Charges Start Date/Time Anesthesia Start Date: 06/04/24 Anesthesia Start Time: 11:13 Stop Date/Time Anesthesia Stop Date: 06/04/24 Anesthesia Stop Time: 12:15 Summary Extremes of Age - Over 70 or under 1: MDA Coding CPT Codes CPT Codes: ANESTH HYSTEROSCOPE/GRAPH - 50192 ([id number]) P2 - PATIENT W/MILD SYST DISEASE, QK - RAIL SETTER 2-4 CNCRNT ANES PROC, QX - PRESS WASHER SVC W/ MD MED DIRECTION Additional Codes: Summary - Extremes of Age - Over 70 or under 1: MDA ([id number])
--- NOTE | 2024-06-04 12:22 | W.ANESCHARGE ---
Anesthesia Charges Start Date/Time Anesthesia Start Date: 06/04/24 Anesthesia Start Time: 11:13 Stop Date/Time Anesthesia Stop Date: 06/04/24 Anesthesia Stop Time: 12:15 Summary Extremes of Age - Over 70 or under 1: MDA Coding CPT Codes CPT Codes: ANESTH HYSTEROSCOPE/GRAPH - 64315 ([id number]) P2 - PATIENT W/MILD SYST DISEASE, QK - COOPER APPRENTICE 2-4 CNCRNT ANES PROC, QX - BEDSPREAD INSPECTOR SVC W/ MD MED DIRECTION Additional Codes: Summary - Extremes of Age - Over 70 or under 1: MDA ([id number])
[2024-06-04 12:30] VITALS: BP 189/85; PULSE 68; RESP 16; O2SAT 94
[2024-06-04] MEDS: ACETAMINOPHEN 500 MG TABLET 1000 MG PO (12:30)
[2024-06-04 12:45] VITALS: BP 202/89; PULSE 72; RESP 16; O2SAT 94
--- NOTE | 2024-06-04 13:25 | SUR.PHASEII ---
MDA notified about elevated BP. Patient's baseline from preop. Pt informed proposal lead writer, she only took 1/3 of her ordered dose of Metoprolol this morning. Informed pt and her to take remaining dose of Metoprolol when she gets home. Tolerated yogurt and water. Pt reports back and shoulder pain. normally take Tylenol at home for this. Tylenol given. Reviewed d/c instructions with pt and . All questions answered. Pt voided. Changed mark pad with small amount of bloody discharge noted on pts bedding and noted on mark pad. Wheelchair out to car with and proposal lead writer.
== END 2024-06-04 13:32 | disposition home or self-care (01) ==
PROVIDERS: PCP Family Medicine; Visit Provider Obstetrics & Gynecology
PROC: 0UDB8ZZ Extraction of Endometrium, Via Natural or Artificial Opening Endoscopic (ICD-10-PCS; CPT 58558; principal; 2024-06-04 10:15)
DX: N95.0 Postmenopausal bleeding (principal); R93.89 Abnormal findings on diagnostic imaging of other specified body structures; I86.3 Vulval varices; K64.8 Other hemorrhoids
CPT/HCPCS: 58558; 56605; 00952; 36415; 76998; 81288; 81403; 82565; 85018; 88305; 88341; 88342; 99100; A9270; C1782; J0665; J2704; J3010; J7030; J7120

== ENCOUNTER 2024-07-25 13:49 | Outpatient (CLI) | payer MEDICARE, BC, SELFPAY ==
--- NOTE | 2024-07-25 14:00 | CRLHL7_ITS ---
For Patients: As a result of the 21st Century Cures Act, medical imaging exams and procedure reports are released immediately into your electronic medical record. You may view this report before your referring provider. If you have questions, please contact your health care provider. 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 An abnormal aorta was noted by the dairy technologist and the patient was referred to the emergency room at [facility] for further evaluation. COMPARISON: There are no prior relevant studies for comparison. TECHNIQUE: CT examination of the chest, abdomen and pelvis was performed following the uneventful intravenous administration of 96 cc of Isovue 370. Thin section axial images were obtained from the thoracic inlet through the pubic symphysis. Oral contrast was not administered. Sagittal and coronal reformatted imaging was performed Please note that all CT scans at this facility use dose modulation, iterative reconstruction, and/or weight-based dosing when appropriate to reduce radiation dose to as low as reasonably achievable. FINDINGS: CHEST: The heart is moderately enlarged. There is no mediastinal or hilar adenopathy or mass. There are atherosclerotic vascular calcifications. The systemic vascularity will be described more fully below. The lungs show areas of atelectasis. There are too numerous to count nodules identified in the lungs. These are primarily peripheral and basilar in the 1-4 millimeter range. These could be inflammatory though I suspect they represent metastatic endometrial carcinoma given the clinical history. No pleural effusion or pneumothorax. AORTA: This study was not specifically designed to evaluate the aorta. It is a single-view study. However, there is diffuse fusiform dilation of the ascending aorta. There is aneurysmal dilation at 6.7 centimeters. There is no evidence that this is currently leaking. The mid aortic arch measures 3.2 centimeters. 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 A dissection is noted beginning in the posterior aspect of the proximal descending thoracic aorta and descending approximally 2 the hiatus. There is no dissection for a short interval and then a small dissection begins in the right lateral distal thoracic aorta extending several centimeters. This does not extend into the iliacs. There is no end-organ ischemia associated with the dissection. ABDOMEN AND PELVIS: LIVER/BILIARY SYSTEM:The liver is normal in size and configuration. There is no focal mass and there is no intra- or extra hepatic biliary ductal dilatation.There is cholelithiasis ADRENALS: Normal KIDNEYS, URETERS and BLADDER:Scattered low-density lesions likely cysts. No obstructive uropathy. The bladder appears normal SPLEEN:Granulomatous calcifications PANCREAS: Appears normal. RETROPERITONEUM and MESENTERY: There are abnormal retroperitoneal lymph nodes. For example, left para-aortic image 50 measuring 12 millimeters. Also, aortocaval, image 16 measuring 13 millimeters. There also several pelvic lymph nodes that are abnormal. I suspect metastatic endometrial carcinoma. GASTROINTESTINAL SYSTEM: There is no evidence of diverticulitis, colitis, mechanical obstruction, or appendicitis. The small bowel as visualized appears normal. PELVIS: Heterogeneous thickening of the endometrium with possible invasion of the anterior myometrium likely related to the patient`s primary tumor..No definite adnexal mass OSSEOUS STRUCTURES and ABDOMINAL WALL: There is an age-appropriate appearance of the osseous structures.No significant abdominal wall defect. OTHER: No free fluid or free air. Discussed with Dr. Prajapati at 3:25 p.m. on July 25, 2024 IMPRESSION: 1. CHEST: There are too numerous to count small nodules identified primarily in a peripheral and basilar distribution in the 1-4 millimeter range. These are suspicious for metastatic endometrial carcinoma. 2. 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 There is no evidence that this is currently leaking or currently on stable. 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 3. ABDOMEN AND PELVIS: Abnormal retroperitoneal and pelvic lymph nodes suspicious for metastatic endometrial carcinoma. Thickening of the endometrium with possible invasion of the anterior myometrium likely related to the known primary tumor. Other nonacute appearing findings to the abdomen and pelvis as described in the body of the report. 4. OSSEOUS STRUCTURES AND BODY WALL: No acute osseous abnormality Please note that all CT scans at this facility use dose modulation, iterative reconstruction, and/or weight-based dosing when appropriate to reduce radiation dose to as low as reasonably achievable. Dictated by Henrry Smith MD @ 07/25/2024 3:37:34 PM (Electronically Signed)
[2024-07-25 14:27] LABS: Creatinine* 0.8 mg/dL (0.5-1.5); Estimated Glomerular Filt Rate 71 ml/min
== END 2024-07-25 13:50 | disposition home or self-care (01) ==
LOC: CT 13:50
PROVIDERS: PCP Family Medicine; Visit Provider Obstetrics & Gynecology Gynecologic Oncology
DX: C54.1 Malignant neoplasm of endometrium (principal); R91.8 Other nonspecific abnormal finding of lung field; R93.89 Abnormal findings on diagnostic imaging of other specified body structures
CPT/HCPCS: 36415; 71260; 74177; 82565; 99284; Q9967

== ENCOUNTER 2024-07-25 16:17 | Emergency (ER) | payer MEDICARE, BC, SELFPAY ==
--- OUTSIDE RECORDS SUMMARY | 2024-07-25 16:19 | XMS_ITS | Clinical Summary ---
Author Organization [facility] Address [address] [place] [address]. [place] [address] Care Team Providers Care Electronic Installer Name Role Phone No Ref-Primary, Physician Primary [...] Active azelastine (ASTELIN) 0.1 % nasal spray [place] 1 spray into both nostrils 2 times daily Active triamcinolone (NASACORT) 55 MCG/ACT nasal aerosol [place] 2 sprays into both nostrils daily Active [...] Active vitamin D3 (CHOLECALCIFERO L) 1.25 MG (66557 UT) capsule Take 2,000 Units by mouth [...] on file Legal Sex Female 4:17 AM OIL PUMPER Gender Identity Not on file Sexual Orientation Not on file Last Filed Vital Signs Vital Sign Reading Time Taken Comments Blood Pressure 118/74 06/07/2019 10:22 AM OIL PUMPER Pulse - - Temperature - - Respiratory Rate - - Oxygen Saturation - - Inhaled Oxygen Concentration - - Weight 112.5 kg (248 lb) 06/07/2019 10:22 AM OIL PUMPER Height 163.8 cm (5' 4.5) 06/07/2019 10:22 AM CS T Body Mass Index 41.91 06/07/2019 10:22 AM OIL PUMPER Plan of Treatment Not on file Procedures Procedure Name Priority Date/Time Associated Diagnosis Comments ONCOLOGY CUSTOM GENE PANEL NGS TISSUE Routine 06/04/2024 11:55 AM OIL PUMPER from Last 3 Months Results * Oncology Single Gene NGS Tissue (06/04/2024 11:55 AM OIL PUMPER) Specimen Description Tissue: Fixed slides- [id number] 06/04/2024 11:55 AM OIL PUMPER [facility] (LDL) Significant Results Detected Alterations of Known or Potential Pathogenicity: None Copy Number Variants: None TMB Score: 21.922 mut/Mb Microsatellite Result: MSI-High 06/04/2024 11:55 AM OIL PUMPER [facility] (LDL) Interpretation No clinically relevant mutations were identified in the POLE gene. 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 The tumor mutational burden (TMB) is elevated, consistent with the MSI-H phenotype. Correlation with histology, clinical features, and immunoprofile is recommended to confirm the final molecular subtype assignment. Genes tested by POLE ([employer]): POLE DRUG RESPONSE Drugs Associated with Sensitivity for Other Tumor Types, Based on Genomic Analysis Drug: Avelumab Response to Drug Associated with Detected Alterations: Primary sensitivity Alteration(s) Detected: MSI-High Condition: Endometrial Adenocarcinoma Other Relevant Information: NCCN recommended for recurrent, metastatic, or high risk endometrial carcinoma with dMMR, as second line treatment. Line of Therapy: Metastatic Source: [facility] Drug: Durvalumab Response to Drug Associated with Detected Alterations: Primary sensitivity Alteration(s) Detected: MSI-High Condition: Endometrial Adenocarcinoma Other Relevant Information: FDA approved for adults with primary advanced or recurrent endometrial cancer that is dMMR, followed by durvalumab as a single agent. Line of Therapy: Recurrent Source: [facility] Drug: Dostarlimab Response to Drug Associated with Detected Alterations: Primary sensitivity Alteration(s) Detected: MSI-High Condition: Multiple tumor types Other Relevant Information: [facility] and/or FDA labels for additional information on clinical contexts related to this therapy match. Line of Therapy: Metastatic Source: [facility] Drug: Nivolumab, Ipilimumab Response to Drug Associated with Detected Alterations: Primary sensitivity Alteration(s) Detected: MSI-High Condition: Colorectal Cancer Other Relevant Information: Indicated for patients >=12 years old with MSI-High/dMMR metastatic colorectal cancer that has progressed following treatment with a fluoropyrimidine, oxaliplatin, and irinotecan. Line of Therapy: Metastatic Source: [facility] Drug: Nivolumab, Ipilimumab Response to Drug Associated with Detected Alterations: Primary sensitivity Alteration(s) Detected: TMB-High Condition: Multiple tumor types Other Relevant Information: Please reference current NCCN and/or FDA labels for additional information on clinical contexts related to this therapy match. Line of Therapy: Metastatic Source: [facility] Drug: Nivolumab Response to Drug Associated with Detected Alterations: Primary sensitivity Alteration(s) Detected: MSI-High Condition: Multiple tumor types Other Relevant Information: Please [facility] and/or FDA labels for additional information on clinical contexts related to this therapy match. Line of Therapy: Metastatic Source: FDA,NCCN Drug: Nivolumab Response to Drug Associated with Detected Alterations: Primary sensitivity Alteration(s) Detected: TMB-High Condition: Glioma Other Relevant Information: NCCN recommended for recurrent or progressive pediatric high-grade diffuse glioma that is TMB-High. Line of Therapy: Metastatic Source: NCCN Drug: Pembrolizumab Response to Drug Associated with Detected Alterations: Primary sensitivity Alteration(s) Detected: MSI-High Condition: Multiple tumor types Other Relevant Information: Please reference current NCCN and/or FDA labels for additional information on clinical contexts related to this therapy match. Line of Therapy: Metastatic Source: FDA,NCCN Drug: Pembrolizumab Response to Drug Associated with Detected Alterations: Primary sensitivity Alteration(s) Detected: TMB-High Condition: Multiple tumor types Other Relevant Information: Indicated for unresectable or metastatic tumor mutational burden-high ( 10 mutations/megabase ) solid tumors with progression following prior treatment and no satisfactory alternative treatment options. Line of Therapy: Metastatic Source: FDA,NCCN Sources: FDA: US Food and Drug Administration (www.fda.gov), NCCN = National Comprehensive Cancer Network (www.nccn.org), ASCO = [place] Society of Clinical Oncology (www.asco.org), MCG: [employer] website (www.Cyphort.org) GENETIC ALTERATIONS TMB STATUS Biomarker: Tumor Mutation [place] (TMB) Result: TMB-High Score: 21.922 mut/Mb Therapeutic Implications*: Associated with drug response Additional Information: Compared to whole exome sequencing (DANA), gene panels may overestimate tumor mutational burden (TMB) [doi.org/10.1016/j .annonc.202.09.01 6]. The average difference between this cancer panel versus DANA was approximately 2 mut/MB (analyzed in TCGA datasets). This bias should be taken into consideration when considering immune checkpoint targeted therapies. MSI STATUS Biomarker: Microsatellite Instability (MSI) Result: MSI-High Score: 48.94% Therapeutic Implications*: Associated with drug response Additional Information: Microsatellite status is analyzed from NGS data using a validated algorithm. Samples with a score less than 20% are called microsatellite stable (CATHY) while those with a score equal to or greater than 20% are called microsatellite instable-high (MSI-high). Copy Number Variants None Detected Alterations of Known or Potential Pathogenicity None Detected Alterations of Uncertain Significance POLE [id number] Due to incomplete characterization of the variant in existing databases or literature, it is difficult to interpret the biological and clinical significance. Detected VUS may represent rare/novel germline variation in the patient, and this assay is not designed to reliably distinguish somatic from germline variants. VUS should not be used for clinical management decisions without expert consultation from a molecular pathologist. (Electronically signed by: Tawny Diaz MD June 25, 2024 10:44 PM) 06/04/2024 11:55 AM OIL PUMPER [facility] (LDL) Test Details Coverage Unless otherwise reported, >90% of coding regions in the genes ordered were sequenced at or greater than 125X depth. Genes with lower coverage are reported below, with the fraction of bases meeting minimum coverage indicated. Clinically relevant hotspots in select genes are reviewed to a minimum VAF of 1% in appropriate clinical contexts. Mutations present at low variant allele fractions (VAFs) in these low coverage regions cannot be completely excluded. Methodology Nucleic acid is extracted and sequencing libraries are prepared using a custom-designed hybrid capture assay ([employer]). The enriched DNA libraries undergo Next Generation Sequencing, and FASTQ files are processed through a custom bioinformatics pipeline to identify: sequence variants (single nucleotide variants and insertion-deletion variants), gene and chromosomal segment copy number gains and losses (copy number variants, CNV), microsatellite instability (MSI) and tumor mutation burden (TMB). Variant call files (vcf) are annotated with [employer] software and reviewed for data quality and clinical utility by genomic analysts and board-certified molecular pathologists. A single hybrid capture enrichment method is used for this assay, and disease specific panels are informatically analyzed from the resultant data. Sequence variants are called to a standard limit of detection at 5% variant allele fraction (VAF); mutations below this threshold may be reported in select contexts after molecular pathologist review. Pathogenic and likely pathogenic sequence variants within the indicated panel genes are reported with detailed interpretation; sequence variants of uncertain significance are listed without further interpretation. Pathogenic and likely pathogenic copy number variants (CNV) within the indicated panel genes are reported; copy number variants of uncertain significance are not reported. Potentially relevant pathogenic CNVs outside of the listed gene panel may be reported at molecular pathologist's discretion for the specific clinical context; in such cases the relevant genes are not analyzed for additional sequence variants unless explicitly described in the case interpretation. Analytic accuracy for each variant type is: sequence variants = 99.9%;CNV = 98.1%; MSI = 100%; and TMB = 93% (for 10 mut/MB cutpoint). Gene(NM Reference): POLE ([id number]) Limitations This hybrid capture-based NGS assay is validated to detect: single nucleotide and insertion-deletion (indel) mutations in coding and splicing regions of the tested genes, significant copy number (CN) gains and losses, microsatellite instability (MSI), and tumor mutation burden (TMB). CN analysis is intended to call moderate to high level gene gain, homozygous gene deletion, or heterozygous large chromosomal segment deletion. Based on the analytic validation, the minimum tumor cellularity required for full analytic sensitivity for the following variant types is: SNV and Indel = 10%; CN gain = 20%; CN loss = 65%; MSI status = 10%; TMB status = 20%. Specimens with borderline tumor cellularity near these cut-points may lead to false negative results for the relevant variant type. Caution is indicated for clinical interpretation of reported VAF; numerous pre-analytic and analytic factors can impact the observed VAF. The tested sample has an estimated tumor percentage of 50%. Disclaimer This test was developed and its performance characteristics determined by the [facility], Molecular Diagnostics Laboratory. It has not been cleared or approved by the FDA. The laboratory is regulated under CLIA as qualified to perform high-complexity testing. This test is used for clinical purposes. It should not be regarded as investigational or for research. I, as the senior physician, attest that I: (i) confirmed appropriate testing, (ii) examined the relevant raw data for the specimen(s); and (iii) rendered or confirmed the interpretation(s). Mementocology Disclaimer This report was produced using software licensed by [employer]. [employer] software is designed to be used in clinical applications solely as a tool to enhance medical utility and improve operational efficiency. The use of [employer] software is not a substitute for medical judgment and [employer] in no way holds itself out as having or providing independent medical judgment or diagnostic services. [employer] is not liable with respect to any treatment or diagnosis made in connection with this report. [employer] Rules Version: rules-0020 [employer] Application Version: [id number] [id number] Electronic Signature Electronically signed/cosigned by: Tawny Diaz 06/20/24 06/04/2024 11:55 AM OIL PUMPER [facility] (LDL) Fixed Tissue TOPOGRAPHY UNKNOWN / Unknown Non-blood Collection / Unknown 06/04/2024 11:55 AM OIL PUMPER 06/07/2024 5:21 PM OIL PUMPER Loraine Arriaza MD LAB - GENOMICS Final Result [facility] ([facility]) [facility] [address] [place] [address], [facility] from Last 3 Months Insurance MEDICARE [facility] Care Teams Electronic Installer Relationship Specialty Start Date End Date No Ref-Primary, Physician PCP - General 06/07/19
--- OUTSIDE RECORDS SUMMARY | 2024-07-25 16:19 | XMS_ITS | Clinical Summary ---
Author Organization [facility] Address [address] [place] [id number] Care Team Providers Care Audiovisual Lead Technician Name Role Phone Alvarado Hodgson MD Primary Care Provider [phone] Allergies Active Allergy Reactions Criticality Noted Date [...] ns:Malignant neoplasm of breast (female), unspecified site (HC) Breast Prosthesis- right and 3 bras dx- [...] Date Periapical abscess without sinus 07/05/2005 10/02/2008 Encounters Date Type Department Care Team Description 07/23/2024 Transcribe Orders [facility] [place] [address] Yang Pillai MD 06/05/2024 Lab Requisition [facility] [phone] TanyaMakenzie Craft MD from Last 3 Months Immunizations Immunization Administration Dates Next Due Influenza A (H1N1), Inactivated (Age >=3 Years) 05/13/2009 Influenza, IIV3 (Age >=3 years) 02/22/2005 Pneumococcal Poly,23-Valent (Pneumovax) 02/23/20 05 Td, Preservative Free (age >= 7 Years) 8 Zoster (Zostavax-ZVL, live) 01/14/2009 Family History Medical History Relation Name Comments Heart Disease Father Other Father CHF Genetic Other father age 73 CHF~mother CAD, age 66 from [place] associated with flu~brother CAD, age 43 from [place]~no CA, DM, HTN Cancer-breast Paternal Aunt Relation [...] on file Legal Sex Female 5:49 AM PHARMACEUTICAL ENGINEER Gender Identity Not on file Sexual [...] 02/10/2011 7:00 AM CDT Plan of Treatment Upcoming Encounters Date Type Department Care Team (Latest Contact Info) Description 08/22/2024 7:00 AM CDT Hospital Encounter [facility] [address] [place] [address] Aby Thompson MD [address] [address] 08/22/2024 7:00 AM CDT - 08/22/2024 9:21 AM CDT Surgery [facility] [address] [place] [address] Aby Thompson MD [address] [address] ROBOTIC ASSISTED TOTAL LAPAROSCOPIC HYSTERECTOMY, BILATERAL SALPINGO OOPHORECTOMY, SENTINEL LYMPH NODE DISSECCTION, PELVIC WASHING, CYSTOSCOPY, INFRACOLIC OMENTECTOMY Scheduled Procedures Name Priority Associated Diagnoses Date/Ti me ROBOTIC ASSISTED LAPAROSCOPI C TOTAL HYSTERECTOMY XI Tier 2 ENDOMETRIAL CANCER 08/22/2024 7:00 AM CDT Health Maintenance Due Date Last Done Comments [...] 11/24/2021, 03/09/2021, 07/07/2020, Additional history exists Influenza Vaccine (#1) 2023 02/22/2005 DEXA/DXA scan for age 65+ Completed 04/01/2008 Medical Devices Implanted Type Area Service Learning Coordinator Device Identifier Shelf Expiration Date Model / Serial / Lot Lens Iol 18.5 Dpt Tecnis - [id number] Implanted:Qty: 1 on 12/23/[address] [facility] Left: Eye [employer] [id number]# / [id number] / Lens Iol 19.0 Dpt Tecnis - [id number] Implanted:Qty: 1 on 02/10/[address] [facility] Right: Eye [employer] [id number]# / [id number] / Procedures Procedure Name Priority Date/Time Associated Diagnosis Comments LAB TRACKING EVENT Routine 06/04/2024 12 :00 PM PHARMACEUTICAL ENGINEER PATH TISSUE EXAM Routine 06/04/2024 11:5 5 AM PHARMACEUTICAL ENGINEER MLH1 AP SEND-OUT Routine 06/04/2024 11:5 5 AM PHARMACEUTICAL ENGINEER POLE AP SENDOUT TEST AND BILLING Routine 06/04/2024 11:55 AM PHARMACEUTICAL ENGINEER XR DXA BONE DENSITY 2 SITES AXIAL Routine 04/01/2008 10:58 AM PHARMACEUTICAL ENGINEER Special Screening for Osteoporosis from Last 3 Months or Most Recently Relevant to Health Maintenance Results * LAB TRACKING EVENT (06/04/2024 12:00 PM PHARMACEUTICAL ENGINEER) Other (Other) Client Collect / Unknown 06/04/2024 12:00 PM PHARMACEUTICAL ENGINEER 06/05/2024 6:53 AM PHARMACEUTICAL ENGINEER Makenzie Reyes MD LAB BILL ONLY Fi nal Result Performing Organization Address [facility] de Phone Number [facility] [address] [phone], [place] * POLE AP SENDOUT TEST AND BILLING (06/04/2024 11:55 AM PHARMACEUTICAL ENGINEER) Other (Endometrial Curettings) 06/04/2024 11:55 AM PHARMACEUTICAL ENGINEER 06/07/2024 9:57 AM PHARMACEUTICAL ENGINEER Makenzie Reyes MD LABORATORY Fi nal Result Performing Organization Address [facility] Phone Number [facility] [address] [address], [place] * MLH1 AP SEND-OUT (06/04/2024 11:55 AM PHARMACEUTICAL ENGINEER) Other (Endometrial Curettings) 06/04/2024 11:55 AM PHARMACEUTICAL ENGINEER 06/10/2024 2:32 PM PHARMACEUTICAL ENGINEER Makenzie Reyes MD LABORATORY Fi nal Result Performing Organization Address [facility] de Phone Number [facility] [address] [address], [place] * PATH TISSUE EXAM (06/04/2024 11:55 AM PHARMACEUTICAL ENGINEER) Case Report Pathology Report Case: [id number] Authorizing Provider: Makenzie Reyse Collected: 06/04/2024 1155 MD Amie Ordering Location: [facility] Received: 06/05/2024 0856 Pathologist: Loraine Arriaza MD Specimens: A) - Endometrial Curettings B) - Left Labia, Left Labia Majus 4:24 PM [facility] Amendment 06/19/2024 - The tiss ue was sent to [facility] for MLH1 promoter methylation testing. See updated final diagnosis, comment, and attached report. 06/26/2024 - Tumor tissue was sent to the [facility] for POLE mutation testing. This amendment is to report the integrated histologic and molecular classification for the endometrial cancer. See the updated final diagnosis field and attached molecular report(s). 5 4:24 PM [facility] Final Diagnosis A) ENDOMETRIUM, CURETTAGE: 1. Endometrial carcinoma: a. 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 Molecular classification: Mismatch repair deficient 2. Ancillary testing: a. DNA mismatch repair enzyme immunohistochemistry: - Deficient - Loss of MLH1 and PMS2 expression - MLH1 promoter methylation: Present b. p53 immunohistochemistry: Normal wild-type pattern c. POLE mutation: No mutation detected 3. See comment B) VULVA, LEFT LABIUM MAJUS, EXCISION: 1. Benign hemangioma with reactive changes 2. 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 Loss of MLH1/PMS2 expression is seen in both components. DNA MISMATCH REPAIR ENZYME STUDIES COMMENT WITH METHYLATION RESULTS Immunohistochemical analysis revealed loss of nuclear expression of DNA mismatch repair enzymes MLH1 and PMS2 and intact staining for MSH2 and MSH6. 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 Microsatellite instability (MSI) is present in nearly all such cases. Therefore, PCR testing is not typically necessary for confirmation. Additional testing revealed the presence of MLH1 promoter hypermethylation (see attached report). 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 This is a common finding, especially in patients with older cancer onset. However, if Donis Syndrome is strongly suspected clinically (e.g., young age <50-60 years, personal history of other Donis syndrome-associated tumors, or suggestive family history), genetic counseling and testing for germline MLH1 promoter hypermethylation in peripheral blood would be reasonable. Please contact [facility] at [phone] if you have questions. 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 Therefore, the patient may be eligible for such therapies in the appropriate clinical setting. This case was seen in consultation with Dr. Cano. Dr. Arriaza notified Dr. Anderson on behalf of Dr. Reyes of preliminary results on 06/07/2024. 4:24 PM [facility] Clinical Information Post menopausal bleeding and thickened endometrium on ultrasound. Left labial majus mass (1x1 cm), vulvar varicosities and inflamed external hemorrhoids. Endometrial curettage and excision of vulvar lesion performed. 4:24 PM [facility] Gross Description A) Received in formalin, labeled with the patient's name and endometrial curettings, is a 9.0 x 3.5 x 0.4 cm aggregate of lee-brown soft tissue fragments, submitting entirely in 5 cassettes. B) Received in formalin, labeled with the patient's name and left labial Majus, is a 1.4 x 1.0 x 0.8 cm partial skin covered nodule. The base margin is inked green. The cut surface is lee-mancuso and rubbery. The specimen is submitted entirely in 1 cassette. TTP 06/05/2024 4:24 PM [facility] Microscopic Description The final diagnosis is based on microscopic examination of appropriate sections of all specimens. The immunohistochemical stains performed on block A3 show: p53: Favor Wild-type expression p16: Variable expression: patchy (in foci of endometrioid carcinoma) to extensive (in foci of clear cell carcinoma) Napsin: Positive (diffuse) in clear cell carcinoma component and negative in endometrioid component ER: Positive in endometrioid component and negative in clear cell carcinoma component PA: Positive in endometrioid component and negative in clear cell carcinoma component A) DNA mismatch repair enzyme immunohistochemistry was performed using block A3 for MLH1, PMS2, MSH2, MSH6, and p53. Results are recorded in the final diagnosis field. 5 4:24 PM [facility] SYNOPTIC REPORTING Endometrium Biomarker Reporting Template ENDOMETRIUM: BIOMARKER REPORTING TEMPLATE - A Protocol posted: 01/08/2019 Test(s) Performed: Immunohistochemistry (IHC) Testing for Mismatch Repair (MMR) Proteins: MLH1: Loss of nuclear expression Immunohistochemistry (IHC) Testing for Mismatch Repair (MMR) Proteins: MSH2: Intact nuclear expression Immunohistochemistry (IHC) Testing for Mismatch Repair (MMR) Proteins: MSH6: Intact nuclear expression Immunohistochemistry (IHC) Testing for Mismatch Repair (MMR) Proteins: PMS2: Loss of nuclear expression Immunohistochemistry (IHC) Testing for Mismatch Repair (MMR) Proteins: Background nonneoplastic tissue / internal control with intact nuclear expression Immunohistochemistry (IHC) Interpretation for Mismatch Repair (MMR) Proteins: Loss of nuclear expression of MLH1 and PMS2: testing for methylation of the MLH1 promoter is indicated (the presence of MLH1 methylation suggests that the tumor is sporadic and germline evaluation is probably not indicated; absence of MLH1 methylation suggests the possibility of Donis syndrome, and sequencing and / or large deletion / duplication testing of germline MLH1 is indicated) There are exceptions to the above IHC interpretations. These results should not be considered in isolation, and clinical correlation with genetic counseling is recommended to assess the need for germline testing. Test(s) Performed: MLH1 Promoter Methylation Analysis: MLH1 promoter methylation present Test(s) Performed: p53 Expression: Normal expression 5 4:24 PM [facility] Additional Information Integrated histologic and molecular classification of endometrial carcinomas provides valuable information for therapeutic decisions and prognosis. Molecular classification is based on testing to evaluate the status of DNA mismatch repair enzymes, p53 and/or TP53, and polymerase epsilon (POLE) in tumor tissue. POLE and TP53 testing may take several weeks to perform. These results impact the integrated tumor classification in approximately 5% of endometrial cancers. WORKFORCE SPECIALIST TUMOR ANCILLARY TESTING PROTOCOL This patient's sample meets [facility] WORKFORCE SPECIALIST oncology reflex testing criteria.* If there is a need for ancillary tests other than these, please call [facility] at [phone]. *WORKFORCE SPECIALIST Oncology reflex testing criteria: - Endometrial carcinoma or carcinosarcoma will have DNA mismatch repair (MMR) enzyme immunohistochemistry (with reflex MLH1 promoter methylation testing), p53 immunohistochemistry (with reflex TP53 mutation testing), and POLE mutation testing performed. - Endometrial endometrioid carcinoma stage III/IV or recurrent will have estrogen and progesterone receptor analysis by immunohistochemistry with image analysis performed. - Endometrial carcinoma with serous component or carcinosarcoma with a serous component or p53 abnormal molecular classification will have HER2 immunohistochemistry (with reflex FISH) performed. Interpreted at [facility] - [address], [place] [address] Immunohistochemistry controls were reviewed and approved by the pathologist during this examination. 4:24 PM PHARMACEUTICAL ENGINEER [facility] Other (Endometrial Curettings) 06/04/2024 11:55 AM PHARMACEUTICAL ENGINEER 06/05/2024 8:56 AM PHARMACEUTICAL ENGINEER Specimen (specimen) (Left Labia) 06/04/2024 11:55 AM PHARMACEUTICAL ENGINEER 06/05/2024 8:56 AM PHARMACEUTICAL ENGINEER us Makenzie Reyes MD PATHOLOGY/CYTOLOGY Edited Result - Final [facility] [address] [place] [address], [place] * XR DEXA BONE DENSITY 2 SITES (04/01/2008 10:58 AM PHARMACEUTICAL ENGINEER) Anatomical Region Laterality Modality Spine, HIPS, HIPL, HIPR Other 04/01/2008 10:5 8 AM PHARMACEUTICAL ENGINEER Narrative 04/02/2008 1:41 PM PHARMACEUTICAL ENGINEER Please see scanned document for results of this study. Procedure Note Jasmyne Meyers PA - 04/03/2008 Please see scanned document for results of this study. us Diamond chaves Result from Last 3 Months or Most Recently Relevant to Health Maintenance Insurance MEDICARE PB ONLY MEDICARE PART B HB ONLY MEDICARE PART A [place] ONLY BL[place] Advance Directives * Full Code (Latest Code Status on File) Date Activated Date Inactivated Comments 02/10/2011 2:57 AM 02/10/2011 12:28 PM * Full Code Date Activated Date Inactivated Comments 12/23/2010 8:26 AM 12/23/2010 2:38 PM Care Teams Audiovisual Lead Technician Relationship Specialty Start Date End Date Alvarado Hodgson MD [address] [place] [id number] PCP - General Family Practice 12/25/20
--- OUTSIDE RECORDS SUMMARY | 2024-07-25 16:19 | XMS_ITS | Continuity of Care Document ---
Author Organization [facility] Address [address] [address] [place] [address] Phone Care Team Providers Care Blueprinter Name Role Phone Unavailable Unavailable Unavailable Allergies, Adverse Reactions, Alerts Substance Reaction Status Criticality naproxen Dizziness Active No Information celecoxib Dizziness Active No Information doxycycline Nausea/Vomiting Active No Informati on adhesive tape Rash Active No Information latex ItchingItching Active No Informatio n ibuprofen don't remember Active No Informatio n AMOXICILLIN TRIHYDRATE don't remember Active No Information POTASSIUM CLAVULANATE don't remember Active No I nformation celecoxib Nausea/Vomiting Active No Informati on codeine Nausea/Vomiting Active No Informati on morphine Nausea/Vomiting Active No Informati on oxycodone Nausea/Vomiting Active No Informati on PENICILLIN Rash Active No Information OXYCODONE HCL i don/t remember Active No Informa tion acetaminophen i don/t remember Active No Informa tion Sulfa (Sulfonamide Antibiotics) Nausea/Vomiting Active No Information Medications Medication Instructions Dosage Effective Dates (start - stop) Status Comments simethicone 125 mg capsule take 1 by oral route 3 times every day as needed 1 - Active Miralax 17 gram/dose oral powder Mix 8.3 oz with 64 oz of sugar free Gatorade and drink about every 15-30 minutes until gone. as needed - Active Procedures Procedure Date Established Level 3 Offic/outpt E&m Estab Low-mod Telephone E&M II 11-20 Min CEM Advance Directives Directive Yes / No Effective Date File Name No Information Encounters Encounter Description Practice Location Reason(s) For Visit Diagnoses Date Provider Providers Copied on Encounter Established Level 3 [facility], [address] [address], [place], [id number], [place] tel:[phone] [facility] GI Symptoms or Concerns (chief complaint) Abdominal bloatingConsti pation, unspecified constipation typeEsophageal dysphagia 3 No Information Referring Provider: Yang Pillai MD, [address] [place], [address]. tel:[phone] [facility], [address] [address], [place], [id number], [place] tel:[phone] [facility] No Information 3 Rasheed Sales. [address] [facility], [facility] [address], [place], [id number], [place]. tel:[phone] Offic/outpt E&m Estab Low-mod [facility], [address] [address], [place], [id number], [place] tel:[phone] [facility] GI Symptoms or Concerns (chief complaint) Constipation, unspecified constipation typeAbdominal bloatingEsopha geal dysphagia 3 No Information Referring Provider: Referral Self, USE FOR SELF REFERRALS. Telephone E&M II 11-20 Min CEM [facility], [address] [address], [place], [id number], [place] tel:[phone] [facility] GI Symptoms or Concerns (chief complaint) Constipation, unspecified constipation type 3 No Information Referring Provider: Yang Pillai MD, [address] [place], [address]. tel:[phone] [facility], [address] [address], [place], [id number], [place] tel:[phone] [facility] No Information 3 Rasheed Sales. [address] [facility], [facility] [address], [place], [place], [id number], [place]. tel:[phone] Family History Family Member Type Diagnosis Age At Onset Daughter Problem (finding) Crohn's disease Mother Problem (finding) Gallbladder disease Immunizations Vaccine Date Status Comments SARS-COV-2 (COVID-19) vaccin e, mRNA, spike protein, LNP, bivalent booster, preservative free, 30 mcg/0.3 mL dose, kelli-sucrose formulation administered Note: [facility] bi-d irectional interface ; Source: Other Registry influenza, high-dose seasona l, quadrivalent, 0.7mL dose, preservative free administered Note: [facility] bi-direct ional interface ; Source: Other Registry influenza, high-dose seasona l, quadrivalent, .7mL dose, preservative free administered Note: [facility] bi-direct ional interface ; Source: Other Registry SARS-COV-2 (COVID-19) vaccin e, mRNA, spike protein, LNP, preservative free, 30 mcg/0.3mL dose, kelli-sucrose formulation administered Note: [facility] C bi- directional interface ; Source: Other Registry influenza, high-dose seasona l, quadrivalent, 0.7mL dose, preservative free administered Note: [facility] bi-direct ional interface ; Source: Other Registry influenza, high-dose seasona l, quadrivalent, .7mL dose, preservative free administered Note: [facility] bi-direct ional interface ; Source: Other Registry Afluria Qd administered Note: [facility] bi-directional interface ; Source: Other Registry SARS-COV-2 (COVID-19) vaccin e, mRNA, spike protein, LNP, preservative free, 30 mcg/0.3mL dose administered Note: [facility] bi-direct ional interface ; Source: Other Registry SARS-COV-2 (COVID-19) vaccin e, mRNA, spike protein, LNP, preservative free, 30 mcg/0.3mL dose administered Note: [facility] bi-direct ional interface ; Source: Other Registry SARS-COV-2 (COVID-19) vaccin e, mRNA, spike protein, LNP, preservative free, 30 mcg/0.3mL dose administered Note: [facility] bi-direct ional interface ; Source: Other Registry influenza, high-dose seasona l, quadrivalent, 0.7mL dose, preservative free administered Note: [facility] bi-direct ional interface ; Source: Other Registry influenza, high-dose seasona l, quadrivalent, .7mL dose, preservative free administered Note: [facility] bi-direct ional interface ; Source: Other Registry influenza, high dose seasona l, preservative-free administered Note: [facility] bi-direct ional interface ; Source: Other Registry zoster vaccine recombinant administered N ote: [facility] bi-directional interface ; Source: Other Registry influenza, high dose seasona l, preservative-free administered Note: [facility] bi-direct ional interface ; Source: Other Registry zoster vaccine recombinant administered N ote: [facility] bi-directional interface ; Source: Other Registry Pneumovax administered Note: [facility] bi-d irectional interface ; Source: Other Registry influenza, high dose seasona l, preservative-free administered Note: [facility] bi-direct ional interface ; Source: Other Registry influenza, high dose seasona l, preservative-free administered Note: [facility] bi-direct ional interface ; Source: Other Registry Prevnar administered Note: [facility] bi-d irectional interface ; Source: Other Registry influenza, high dose seasona l, preservative-free administered Note: [facility] bi-direct ional interface ; Source: Other Registry Influenza, seasonal, injecta ble, preservative free administered Note: [facility] bi-direct ional interface ; Source: Other Registry Influenza, seasonal, injecta ble, preservative free administered Note: [facility] bi-direct ional interface ; Source: Other Registry tetanus toxoid, reduced diphtheria toxoid, and acellular pertussis vaccine, adsorbed administered Note: [facility] b i-directional interface ; Source: Other Registry Influenza, seasonal, injecta ble, preservative free administered Note: [facility] bi-direct ional interface ; Source: Other Registry Afluria Qd administered Note: M [facility] bi-directional interface ; Source: Other Registry Novel [id number], all formulations administered Note: [facility] bi-direct ional interface ; Source: Other Registry zoster vaccine, live administered Note: M [facility] bi-directional interface ; Source: Other Registry tetanus and diphtheria toxoi ds, adsorbed, preservative free, for adult use (5 Lf of tetanus toxoid and 2 Lf of diphtheria toxoid) administered Note: [facility] bi-direct ional interface ; Source: Other Registry Influenza, seasonal, injectable administe red Note: [facility] bi- directional interface ; Source: Other Registry Pneumovax 23 administered Note: [facility] bi-d irectional interface ; Source: Other Registry Payers Payer name Insurance type Covered libertarian ID Authoriza tion(s) Medicare NGS MB [id number] [facility] [id number] Social History Type Description Quantity Date Captured Comments Alcohol Use Details Unknown Caffeine Use Details Unknown Tobacco Use Status No Information Smoking Status undefined Sex Female Vital Signs Date / Time: Height Weight BMI Pulse Rate Blood Pressure Temperature Respiratory Rate Body Surface Area Head Circumference Head Circ. Percentile Wt./Santi. Percentile BMI percentile Pulse Ox Inhaled Ox 10:41 AM 63.00 in 97.522 kg (215.00 lbs) 38.0 8 kg/m eter (2) Chief Complaint And Reason For Visit From encounter dated '08/24/2022 10:40'. GI Symptoms or Concerns (chief complaint). Description: Ms. Megan Feliciano is an 87-year-old female, presenting to clinic for followup in regards to her constipation, abdominal bloating, and also some dysphagia. She has consented to this virtual appointment and is in the privacy of her home.I have been seeing her for a few months now, and she continues to have improvement in her symptoms. She continues denying any upper GI symptoms, no unintentional weight loss, melena, or hematochezia.At our lastvisit, I had recommended that she complete a colon cleanse, to see if this would be helpful with her ongoing symptoms, also with recommendations to start on twice-daily use of senna docusate both in the morning and afternoon. I also recommended that she continue with her daily MiraLAX and also kombucha as this seemed to have been helpful for her symptoms.Of note, she tells me that she did have colon cleanse on July 14 with Gatorade and MiraLAX mixture. She notes having a large bowel movement some with hard pieces and also some softer pieces and eventually has been able to maintain a normal almost loose. She has been having a movement everyday, notes significant improvement in her bloating,and overall feeling better. Reason For Referral Reason For Referral No Information History Of Present Illness Encounter Date Complaint History Of Prese nt Illness GI Symptoms or Concerns Ms. Megan Feliciano is an 87-year-old female, presenting to clinic for followup in regards to her constipation, abdominal bloating, and also some dysphagia. She has consented to this virtual appointment and is in the privacy of her home.I have been seeing her for a few months now, and she continues to have improvement in her symptoms. She continues denying any upper GI symptoms, no unintentional weight loss, melena, or hematochezia.At our last visit, I had recommended that she complete a colon cleanse, to see if this would be helpful with her ongoing symptoms, also with recommendations to start on twice-daily use of senna docusate both in the morning and afternoon. I also recommended that she continue with her daily MiraLAX and also kombucha as this seemed to have been helpful for her symptoms.Of note, she tells me that she did have colon cleanse on July 14 with Gatorade and MiraLAX mixture. She notes having a large bowel movement some with hard pieces and also some GI Symptoms or Concerns Megan paulino is an 87-year-old female who presented to clinic for followup on constipation, and also dysphagia, which she would like some recommendations. She has consented to a virtual appointment, and is in the privacy of her home.I last saw her about a month ago, at which time she had reported worsening constipation symptoms. She did report in the emergency room in the past for fecal impaction, she was denying any blood or black tarry stools.She was on MiraLax 1 capful daily and 2 tablets once a day, kombucha and also daily probiotics with Fleet Enema as needed and had been doing well with this regimen. She had colonoscopy that was done at [facility], this was completed on 11/08/2004, and showed mild diverticular disease with a poor colonic preparation. There was no evidence of polyps or cancer in the exam and she had been recommended to follow up in 5 years.We had adjusted her medicine on our last visit and had requested that she start using 1 tablet o GI Symptoms or Concerns Megan paulino is an 86-year-old patient presenting to clinic today for evaluation of constipation. She is here in consultation from Dr. Yang Pillai. She has consented to this virtual appointment, and is in the privacy of her own home.She tells me that she has a history of constipation, but seemed to have gotten worse over the past year. She reports going to the emergency room due to fecal impaction. She denies having any blood or black tarry stools.She is currently on MiraLax 1 capful daily, senna docusate 2 tablets once a day, kombucha 6 ounces daily, probiotic daily, and Fleet enema as needed. She reports that with this regimen, she has been able to have about 2 bowel movements per day, which she considered to be large movements.She reports a history of a colonoscopy at [facility], in the past 5 years. We will request these records to be reviewed.She did have an abdominal x-ray that was done 04/12/2022 that was noted for severe constipation. Functional Status Date Functional Assessmen t No Information Instructions Date Instruction Additional Infor clarence 1. Continue with rubi ly Kombucha and yane seed use. 2. Reduce Miralax to 1/2 capful, and continue to reduce until you stop if still having loose stools. 3. Repeat the colon cleanse in about 3 months if needed, as discussed. 4. Follow-up in clinic as needed, call clinic with any questions or concerns. Please feel free to reach me through the patient portal or call my patient customer care team coach at [phone] and then at EXT. [phone]. Thank you for trusting me with your healthcare! Related to Abdominal bloating 1. Continue with the senna-docusate 2 in the morning and 1 in the evening. Ok to increase to 2 in the evening if having to use fleet enema more frequently. 2. Simethicone as needed for gas. 3. Continue with daily Miralax and Kombucha. 4. Consider Colon cleanse: Cleanse colon with Miralax/Gatorade- mix one 8.3 ounce bottle of Miralax with 64 ounces of Gatorade- drink 1 cup until gone (complete in 1 day.)Please feel free to reach me through the patient portal or call my patient customer care team coach at [phone] and then at EXT. [phone]. Thank you for trusting me with your healthcare! Related to Constipation, unspecified constipation type Constipation Related to Const ipation, unspecified constipation type Constipation Bowel Cleanse Relat ed to Constipation, unspecified constipation type Gas Pain and Bloating Related to Abdominal bloating 1. Continue with rubi ly Miralax. 2. Increase senna-docusate to 2 tablets in the morning and 1 at bedtime. 3. Continue with Kombucha and probiotic. Fleet as needed. 4. Follow-up in clinic in 4 weeks. Please feel free to reach me through the patient portal or call my patient customer care team coach at [phone] and then at EXT. [phone]. Thank you for trusting me with your healthcare! Related to Constipation, unspecified constipation type Assessments Type Assessment Date assessment Abdominal bloating assessment Constipation, unspecified consti pation type assessment Esophageal dysphagia impression This is an 87-year-o ld female, presenting to clinic for followup in regards to esophageal dysphagia, abdominal bloating, and also constipation. Last colonoscopy was done in 2004 and noted for diverticular disease without any concerns for polyps or colon cancer.In regards to her esophageal dysphagia, this had only happened on 3 occasions. She notes that she has not had any symptoms since our last visit. She has been taking smaller bites, taking her time with eating, and using water to move her food on occasions. Has been doing well and we did not discuss any further recommendations for this issue.As for her abdominal bloating and also constipation, she has significantly improved symptoms with daily use of MiraLAX, yane seeds, and also daily kombucha use. She has been consistent enough that her stools are becoming more loose, I did recommend cutting back on the MiraLAX, and hopefully be able to discontinue this and continue with dietary modifications, as she was already doing. No further recommendations in regards to these symptoms.The patient is agreeable to the plan as noted above, and will plan to follow up in clinic as needed or call us with any questions or concerns. Patient Care Teams Name Effective Dates (start - stop) Status Members No Information
--- OUTSIDE RECORDS SUMMARY | 2024-07-25 16:19 | XMS_ITS | CCD ---
Author Name Interface, [id number] Address [address] [place] [address] [address] [address] [facility] Address [address] [facility] [address] [place] [address] Care Team Providers Care Station Supervisor Name Role Phone Aby Thompson Unavailable Unava ilable Allergies and Adverse Reactions Medication/Group Name Reaction Severity Date Penicillins Rash 06/24/2024 quinine 06/24/2024 peppermint 06/24/2024 Spearmint 06/24/2024 naproxen 07/19/2024 losartan Cough 07/19/2024 oxycodone Nausea 06/24/2024 latex Rash 07/19/2024 tramadol 06/24/2024 morphine 07/19/2024 Carba mix (substance) 2024 rofecoxib 06/24/2024 celecoxib 07/19/2024 montelukast Edema 07/19/2024 Phenol 06/24/2024 propoxyphene 06/24/2024 menthol Diarrhea 07/19/2024 Aminoglycosides 07/19/2024 neomycin 07/19/2024 ibuprofen Swelling 07/19/2024 nystatin Rash 06/24/2024 Sulfamide 06/24/2024 Care Plan Date Type Value 07/19/2024 APPOINTMENT LAB 15 MIN 07/19/2024 APPOINTMENT NEW PT CONSULT 6 0 MIN 07/05/2024 APPOINTMENT NEW PT CONSULT 6 0 MIN 07/05/2024 APPOINTMENT LAB 15 MIN 06/26/2024 APPOINTMENT LAB 15 MIN 06/26/2024 APPOINTMENT NEW PT CONSULT 6 0 MIN 06/26/2024 APPOINTMENT NEW PT CONSULT 6 0 MIN 07/19/[address] chest/abdomen /pelvis w/ contrast Reason for Visit LAB 15 MIN Encounters Date Name 07/19/2024 Endometrial carcinom a (disorder) 07/19/2024 Endometrial carcinom a (disorder) 07/19/2024 LAB 15 MIN 07/19/2024 Endometrial carcinom a (disorder) Diagnostic Results Date Type Test Units Lower Limit Upper Limit Result Flag Comments Status Ordered By Specimen Source Lab Address 05/20 Misc other lab See dock or pier laborer d Medications Date Name Route Dose Frequency Instructions Start Date End Date Status Acetaminophen Oral 1000.0 mg BID PRN active Miscellaneous Drug c hia seed oil- omega 3-6-9 1,000 mg ( 580 mg) active Fluticasone Nasal [place] 50 mcg/actuation active Triamterene-Hydroc hlorothiazide Oral Capsule 37.5 mg-25 mg QD active Fexofenadine Oral QD active Polyethylene Glycol Oral Powder a ctive Ibandronate Oral Monthly active Trospium Oral QHS act meño Metronidazole Topical Cream 0.75 % BID PRN active Cyclobenzaprine Oral TID PRN active Clobetasol Topical Cream 0.05 % BID PRN active Lactobacillus Combination No.11 Oral QD active Levothyroxine Oral orally 1.0 tablet daily quantity sufficient for 30 days; 3 refills active Multivitamins Oral Tablet active Bisacodyl Oral QD PRN ac tive Cholecalciferol Oral active Problems Diagnosis Status Date of Diagnosi s Endometrial carcinoma (disorder) Active Procedures Date Category Name Instructions Status 07/19/[address] chest/abdomen /pelvis w/ contrast Ordered 07/19/2024 Physician Order RTC post-op follow-up 2 w eeks post op with [facility] [place] Ordered 07/23/2024 Physician Order Referral to social work p t would like to discuss resources for housing Ordered Social History Date Name Value 07/19/2024 Smoking Status Never smoker 07/19/2024 Sex Female Vital Signs Date Type Value 07/19/2024 Height 62.00 07/19/2024 Weight 199.60 07/19/2024 Intravascular Systolic 140 07/19/2024 Intravascular Diastolic 80 07/19/2024 Respiratory Rate 16.00 07/19/2024 Heart Beat 70.00 07/19/2024 Pain Scale 0.00 07/19/2024 Oxygen Saturation 96.00 07/19/2024 BMI 36.51
--- NOTE | 2024-07-25 16:37 | ED_ITS ---
HPI - General Adult General Time Seen by Provider: 16:38 Date Seen: 07/25/24 Chief complaint: Unspecified Complaint, Adult Stated complaint: Abnormal CT Time Seen by Provider: 07/25/24 16:31 Source: patient and RN notes reviewed Mode of arrival: ambulatory Limitations: no limitations History of Present Illness HPI narrative: This 89-year-old female ended up in the ER after the endoscopy specialty technician noted a vascular abnormality on outpatient CT imaging. They did ask if I would come visualize this, were worried about what they were seeing. I did go over to the scanner, did see a probable false lumen, dilated aorta on the brief images. The is images were ordered outpatient for further staging of endometrial cancer. Dr. Thompson from a [place] [facility] reportedly had ordered the imaging. I did briefly talk to Megan Trejo while she was in the CT scan area, she agreed to wait. Did review with her that we saw some concerning vascular issues. She states she has a known ascending aortic aneurysm. She had had abdominal ultrasound ordered for imaging of her aorta, had no showed that 4 times prior. She is not having any active chest symptoms at this time. When she was placed in a room, did go to talk to her, reviewed her CT imaging report. There was concern about metastatic endometrial cancer in the chest and in retroperitoneal and pelvic lymph nodes. She also has a 6.7 cm fusiform aneurysmal dilation of the ascending aorta. 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 She has no new or acute pain symptoms, no chest pain, not short of breath. Unclear if there was ever been a point in time where she maybe felt episode of severe back pain or chest pain when the dissection could have potentially happened. Related Data Home Medications ?Medication ?Instructions ?Recorded ?Confirmed fexofenadine 180 mg tablet 180 mg PO Q24H 12/15/21 07/22/24 (Kenna Allergy) polyethylene glycol 3350 17 gram 17 g PO QDAY 12/15/21 07/22/24 oral powder packet (Miralax) cholecalciferol (vitamin D3) 50 50 mcg PO DAILY 12/27/21 07/22/24 mcg (2,000 unit) tablet metronidazole 0.75 % topical cream 1 applic topical BID PRN 12/27/21 07/22/24 multivitamin (Multiple Vitamins 1 tab PO QDAY 12/27/21 07/22/24 tablet) acetaminophen 500 mg capsule 1,000 mg PO BID PRN 01/13/22 07/22/24 yane seed oil-omega 3-6-9 1,000 mg cap PO 10/06/23 07/22/24 (580 mg) capsule fluticasone propionate 50 1 spray intranasal QDAY 10/06/23 07/22/24 mcg/actuation nasal spray,suspension lactobacillus combo no.11 15 1 cap PO QDAY 10/06/23 07/22/24 billion cell sprinkle capsule (Probiotic) Previous Rx's ?Medication ?Instructions ?Recorded trospium 20 mg tablet 20 mg PO .Bedtime #180 tabs 06/13/22 ibandronate 150 mg tablet 150 mg PO MONTHLY #3 tabs 10/31/23 bisacodyl 10 mg rectal suppository 10 mg ME QDAY PRN constipation #12 11/09/23 (Dulcolax (bisacodyl)) ea triamterene 37.5 1 tab PO QDAY #90 tabs 11/09/23 mg-hydrochlorothiazide 25 mg tablet misoprostol 200 mcg tablet 200 mcg vaginal ONCE #1 tab 05/08/24 (Cytotec) permethrin 5 % topical cream 1 applic topical ONCE #60 grams 05/14/24 metoprolol succinate 50 mg 75 mg (1.5 x 50 mg) PO QDAY #135 05/20/24 tablet,extended release 24 hr tabs (Toprol XL) cyclobenzaprine 5 mg tablet 5 mg PO TID PRN muscle spasm #90 07/04/24 tabs levothyroxine 100 mcg tablet 100 mcg PO QDAY #90 tabs 07/15/24 cephalexin 500 mg capsule 500 mg PO TID #30 caps 07/22/24 silver sulfadiazine 1 % topical 1 applic topical BID #400 grams 07/22/24 cream (Silvadene) amlodipine 5 mg tablet 5 mg PO DAILY #30 tabs 07/25/24 Allergies Allergy/AdvReac Type Severity Reaction Status Date / Time bacitracin Allergy Severe swelling Verified 06/20/24 15:04 in lips ibuprofen Allergy Severe swelling Verified 06/20/24 15:04 nystatin Allergy Severe Rash Verified 06/20/24 15:04 penicillin V Allergy Intermediate Rash Verified 06/20/24 15:04 latex Allergy Mild Rash Verified 06/20/24 15:04 morphine Allergy Mild Unknown Verified 06/20/24 15:04 naproxen Allergy Mild Unknown Verified 06/20/24 15:04 oxycodone Allergy Mild Nausea Verified 06/20/24 15:04 propoxyphene Allergy Mild Unknown Verified 06/20/24 15:04 quinine Allergy Mild Unknown Verified 06/20/24 15:04 rofecoxib Allergy Mild Unknown Verified 06/20/24 15:04 tramadol (From Ultracet) Allergy Mild Unknown Verified 06/20/24 15:04 Aminoglycosides Allergy Unknown Unknown Verified 06/20/24 15:04 celecoxib Allergy Unknown Unknown Verified 06/20/24 15:04 neomycin Allergy Unknown Unknown Verified 06/20/24 15:04 phenol Allergy Unknown Unknown Verified 06/20/24 15:04 losartan AdvReac Mild Cough Verified 06/20/24 15:04 menthol AdvReac Mild Diarrhea Verified 06/20/24 15:04 montelukast AdvReac Mild edema Verified 06/20/24 15:04 fragrance mix Allergy Intermediate sneezing, Uncoded 06/20/24 15:04 watery eyes, cough Sulfa drugs Allergy Mild Unknown Uncoded 06/20/24 15:04 carba mix Allergy Unknown Unknown Uncoded 06/20/24 15:04 Peppermint Flavor Allergy Unknown Unknown Uncoded 06/20/24 15:04 Spearmint Flavor Allergy Unknown Unknown Uncoded 06/20/24 15:04 [facility] Medical History (Updated 07/25/24 @ 17:37 by Gabriela Madden MD) Skin ulcer of buttock ?L98.419 - Non-pressure chronic ulcer of buttock with unspecified severity (ICD-10) Skin irritation ?R23.8 - Other skin changes (ICD-10) COVID ?U07.1 - COVID-19 (ICD-10) Aortic valve stenosis with insufficiency ?I35.2 - Nonrheumatic aortic (valve) stenosis with insufficiency (ICD-10) Medicare annual wellness visit, subsequent ?Z00.00 - Encounter for general adult medical examination without abnormal findings (ICD-10) Chronic constipation ?K59.09 - Other constipation (ICD-10) H/O needle biopsy (09/06/11) ?Z98.890 - Other specified postprocedural states (ICD-10) Hypercalcemia ?E83.52 - Hypercalcemia (ICD-10) Pain of left scapula ?M89.8X1 - Other specified disorders of bone, shoulder (ICD-10) Back muscle spasm ?M62.830 - Muscle spasm of back (ICD-10) Osteopenia (07/02/12) ?M85.80 - Other specified disorders of bone density and structure, unspecified site (ICD-10) Infiltrating ductal carcinoma of breast ?C50.919 - Malignant neoplasm of unspecified site of unspecified female breast (ICD-10) Ear problem ?H93.90 - Unspecified disorder of ear, unspecified ear (ICD-10) Colitis due to Clostridium difficile ?A04.72 - Enterocolitis due to Clostridium difficile, not specified as recurrent (ICD-10) Bacterial meningitis (1997) ?G00.9 - Bacterial meningitis, unspecified (ICD-10) Back pain ?M54.9 - Dorsalgia, unspecified (ICD-10) Surgical History Status post cataract extraction and insertion of intraocular lens (01/14/11) ?Z98.49 - Cataract extraction status, unspecified eye (ICD-10) ?Z96.1 - Presence of intraocular lens (ICD-10) History of tonsillectomy (06/07/10) ?Z90.89 - Acquired absence of other organs (ICD-10) History of right mastectomy (~1976) ?Z90.11 - Acquired absence of right breast and nipple (ICD-10) History of lumpectomy of left breast (2017) ?Z98.890 - Other specified postprocedural states (ICD-10) History of arthroscopy of left knee (06/07/10) ?Z98.890 - Other specified postprocedural states (ICD-10) Family History Aunt Breast cancer Mother Heart disease Other CHF (congestive heart failure) Social History (Updated 05/23/24 @ 14:21 by Maria Teresa Melgoza~[facility]) Narrative: does not drink alcohol does not use illicit drugs - Doug nonsmoker What is your current living situation?: I presently have a place to live Problems where you live: pests, such as bugs, ants, or mice In the past 12 months, utilities in danger of being shut off: no In past 12 months, lack of transportation kept you from medical appts, meetings, work, or getting things needed for daily living: yes In the past 12 mos, have been you worried that your food would run out before you had money to buy more?: never true In the past 12 mos, the food you bought just didn't last and you didn't have money to buy more?: never true Smoking Status: Never smoker Do you use any of these nicotine containing products: None How often do you have a drink containing alcohol: never How often do you have six or more drinks on one occasion: Never AUDIT-C Alcohol total score: 0 Non-prescribed substance use: denies use Caffeine: No How often does anyone, including family, friends and others, physically hurt you : never How often does anyone, including family, friends and others, insult or talk down to you: never How often does anyone, including family, friends and others, threaten you with harm: never How often does anyone, including family, friends and others, scream or curse at you: never Are you using contraception or practicing any form of control: No service: No Health Related Social Needs: Inadequate housing (Z59.1) and transportation insecurity (Z59.82) Exam Const: Vital Signs, click to edit/add: Vital Signs - 24 hr 07/25/24 17:00 07/25/24 17:07 07/25/24 17:15 Temperature 97.3 F L Pulse Rate 69 69 Pulse Rate [Apical ] 66 Respiratory Rate Blood Pressure [Le ft Upper Arm] 188/86 H Pulse Oximetry 95 94 96 Oxygen Delivery Me thod Room Air 07/25/24 17:20 Temperature Pulse Rate Pulse Rate [Apical ] 66 Respiratory Rate 18 Blood Pressure [Le ft Upper Arm] 174/85 H Pulse Oximetry 94 Oxygen Delivery Me thod Her arrival blood pressure was 188/86. She is alert, interactive, no apparent distress. Sitting wheelchair, sclera clear, face atraumatic. She has some kyphosis, lungs are clear, good air entry, no wheezing crackles, tachypnea, no accessory muscle use. CV regular rate and rhythm, 2/6 systolic murmur heard best right upper sternal border, normal S1-S2, do not hear any S3-S4. Documenting provider has reviewed patient's vital signs: yes Course Course ED Course: Have reviewed with patient that a need to talk to vascular surgery, have a page out to her oncologist just to keep them in the loop on this. Reviewed that her blood pressure is elevated. She states it is labile, can be up and down. She is not on any blood thinner, no aspirin. She has her here, states she needs to get him home. He has the most definite resting tremor, suspect neurologic disease but did not go into this further, she is obviously his primary care provider. Reevaluation(s) Time of Reevaluation #1: 17:27 Reevaluation #1: Have reviewed all my conversations with the oncologist in the surgeon with patient. She is in a bit of a difficult situation. She would agree to further management of blood pressure from me today. Her recheck blood pressure is showing systolic 170s. Pulses in the 60s and thus her metoprolol is likely at maximum dosing. Will add in amlodipine 5 mg. She has had a cough with losartan. Is on a diuretic as well. Do see aortic stenosis listed on her findings, echo in 2023 showed mild aortic stenosis with some insufficiency. Do think amlodipine at this lower dosage is reasonable to try for better blood pressure control. Consultations Consultation #1: Did speak with her physician Dr. Thompson from [place] [facility]. Did update her on the CT findings including the concern for metastatic endometrial carcinoma. With these findings, patient may not even be chemotherapy candidate. Will talk to vascular surgery when able. She will make a note to follow this patient's progress, follow up with her obviously. Time: 16:49 Consultation #2: Have reviewed with vascular surgeon Dr. Tang from [facility]. She is able to see the images. Did review the situation of the potential metastatic cancer, endometrial, the hypertension. She obviously reviewed that this patient is at very high risk from mortality from rupture with this, very high risk for rupture. We have no way of knowing when this could happen, could be seconds from now to year from now. I a have already reviewed with the patient that at this size she is at high risk for rupture. Patient is obviously at very high risk of mortality from rupture. If patient would consider repair which would be obviously open, she would need somewhat emergent referral to appropriate surgeon , would need to agree to take appropriate blood pressure management. The dissection is not a current issue per the surgeon. She also agrees that patient likely will not be a chemotherapy candidate it as she believes it can increase the risk of rupture of this aneurysm. Time: 17:15 Vital Signs Vital signs: Initial Vital Signs Temperature 97.3 F L 07/25/24 17:00 Temperature Source Temporal Artery Scan 07/25/24 17:00 Pulse Rate 66 07/25/24 17:00 Pulse Rhythm Regular 07/25/24 17:00 Blood Pressure 188/86 H 07/25/24 17:00 Blood Pressure Mean 120 H 07/25/24 17:00 Pulse Oximetry 95 07/25/24 17:00 Oxygen Delivery Method Room Air 07/25/24 17:00 Vital Signs Temperature 97.3 F L 07/25/24 17:00 Pulse Rate 66 07/25/24 17:00 Blood Pressure 188/86 H 07/25/24 17:00 Pulse Oximetry 95 07/25/24 17:00 Oxygen Delivery Method Room Air 07/25/24 17:00 Temperature 97.3 F L 07/25/24 17:00 Pulse Rate 66 07/25/24 17:20 Respiratory Rate 18 07/25/24 17:20 Blood Pressure 174/85 H 07/25/24 17:20 Pulse Oximetry 94 07/25/24 17:20 Oxygen Delivery Method Room Air 07/25/24 17:00 Medical Decision Making Imaging Data CT Chest/Ab/Pelvis: Attestation: I have reviewed the pertinent imaging results. Radiologist's impression: Patient: [facility] Facility:?[facility] Patient ID:?[id number] Site Patient ID:?[id number]. Site :?[id number] Study:?CT-Chest/Abd/Pelvis W/ 96CC ISOVUE 370-07/25/2024 3:08:49 PM Ordering Physician:Kristopher Badillo Final Report: INDICATION: Patient presented as an outpatient for staging of a new diagnosis of endometrial carcinoma. An abnormal aorta was noted by the instrument technologist and the patient was referred to the emergency room at [facility] for further evaluation. COMPARISON: There are no prior relevant studies for comparison. TECHNIQUE: CT examination of the chest, abdomen and pelvis was performed following the uneventful intravenous administration of 96 cc of Isovue 370. Thin section axial images were obtained from the thoracic inlet through the pubic symphysis. Oral contrast was not administered. Sagittal and coronal reformatted imaging was performed Please note that all CT scans at this facility use dose modulation, iterative reconstruction, and/or weight-based dosing when appropriate to reduce radiation dose to as low as reasonably achievable. FINDINGS: CHEST: The heart is moderately enlarged. There is no mediastinal or hilar adenopathy or mass. There are atherosclerotic vascular calcifications. The systemic vascularity will be described more fully below. The lungs show areas of atelectasis. There are too numerous to count nodules identified in the lungs. These are primarily peripheral and basilar in the 1-4 millimeter range. These could be inflammatory though I suspect they represent metastatic endometrial carcinoma given the clinical history. No pleural effusion or pneumothorax. AORTA: This study was not specifically designed to evaluate the aorta. It is a single-view study. However, there is diffuse fusiform dilation of the ascending aorta. There is aneurysmal dilation at 6.7 centimeters. There is no evidence that this is currently leaking. The mid aortic arch measures 3.2 centimeters. 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 A dissection is noted beginning in the posterior aspect of the proximal descending thoracic aorta and descending approximally 2 the hiatus. There is no dissection for a short interval and then a small dissection begins in the right lateral distal thoracic aorta extending several centimeters. This does not extend into the iliacs. There is no end-organ ischemia associated with the dissection. ABDOMEN AND PELVIS: LIVER/BILIARY SYSTEM:The liver is normal in size and configuration. There is no focal mass and there is no intra- or extra hepatic biliary ductal dilatation.There is cholelithiasis ADRENALS: Normal KIDNEYS, URETERS and BLADDER:Scattered low-density lesions likely cysts. No obstructive uropathy. The bladder appears normal SPLEEN:Granulomatous calcifications PANCREAS: Appears normal. RETROPERITONEUM and MESENTERY: There are abnormal retroperitoneal lymph nodes. For example, left para-aortic image 50 measuring 12 millimeters. Also, aortocaval, image 16 measuring 13 millimeters. There also several pelvic lymph nodes that are abnormal. I suspect metastatic endometrial carcinoma. GASTROINTESTINAL SYSTEM: There is no evidence of diverticulitis, colitis, mechanical obstruction, or appendicitis. The small bowel as visualized appears normal. PELVIS: Heterogeneous thickening of the endometrium with possible invasion of the anterior myometrium likely related to the patient`s primary tumor..No definite adnexal mass OSSEOUS STRUCTURES and ABDOMINAL WALL: There is an age-appropriate appearance of the osseous structures.No significant abdominal wall defect. OTHER: No free fluid or free air. Discussed with Dr. Prajapati at 3:25 p.m. on July 25, 2024 IMPRESSION: 1. CHEST: There are too numerous to count small nodules identified primarily in a peripheral and basilar distribution in the 1-4 millimeter range. These are suspicious for metastatic endometrial carcinoma. 2. 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 There is no evidence that this is currently leaking or currently on stable. 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 3. ABDOMEN AND PELVIS: Abnormal retroperitoneal and pelvic lymph nodes suspicious for metastatic endometrial carcinoma. Thickening of the endometrium with possible invasion of the anterior myometrium likely related to the known primary tumor. Other nonacute appearing findings to the abdomen and pelvis as described in the body of the report. 4. OSSEOUS STRUCTURES AND BODY WALL: No acute osseous abnormality Please note that all CT scans at this facility use dose modulation, iterative reconstruction, and/or weight-based dosing when appropriate to reduce radiation dose to as low as reasonably achievable. Dictated by Henrry Smith MD @ 07/25/2024 3:37:34 PM (Electronic Signature) Discharge Plan Discharge Clinical Impression: Aneurysm of ascending aorta without rupture, Hypertension, Chronic dissection of thoracic aorta Patient Disposition: Home, Self-Care Condition: Unchanged Instructions: Ascending Thoracic Aortic Aneurysm (DC) Additional Instructions: If you would consider repair of this aneurysm, need Dr. Pillai to get you to cardiovascular/cardiothoracic surgeon [facility]. This would be an open repair with opening of your chest. This is a large aneurysm and is at high risk of rupture, rupture is likely to be a life ending situation unfortunately. You need to talk to Oncology as well regarding the CT findings, the uterine cancer appears to be metastatic based on the CT findings. You will have to discuss with them whether not surgery is still an option but I believe it is not. Chemotherapy is possibly not an option either given the aneurysm, may potentially increase the risk of the aneurysm rupturing. All of these things need to be discussed further with your care team. You need to have better blood pressure management. Your pulse is at the lower end of normal, metoprolol is at the highest dosing that I think you should be on. Stay on your diuretic. Have written a prescription to add in amlodipine, most common side effect is lower leg swelling. Please get in to see the oncologist and your primary as soon as possible to review all of these things. Activity Level: Activity as Tolerated Prescriptions: New amlodipine 5 mg tablet 5 mg PO DAILY Qty: 30 0RF No Action fexofenadine [Kenna Allergy] 180 mg tablet 180 mg PO Q24H polyethylene glycol 3350 [Miralax] 17 gram powder in packet 17 g PO QDAY silver sulfadiazine [Silvadene] 1 % cream 1 applic topical BID Qty: 400 0RF Rx Instructions: apply a 1.5 mm thickness cephalexin 500 mg capsule 500 mg PO TID Qty: 30 0RF metronidazole 0.75 % cream 1 applic topical BID PRN multivitamin [Multiple Vitamins] Tablet 1 tab PO QDAY cholecalciferol (vitamin D3) 50 mcg (2,000 unit) tablet 50 mcg PO DAILY acetaminophen 500 mg capsule 1,000 mg PO BID PRN fluticasone propionate 50 mcg/actuation spray,suspension 1 spray intranasal QDAY Rx Instructions: administer into each nostril Probiotic 15 billion cell capsule, sprinkle 1 cap PO QDAY Rx Instructions: do not crush/chew/cut; swallow whole OR may open and sprinkle in cold drink/food yane seed oil-omega 3-6-9 1,000 mg (580 mg) capsule PO bisacodyl [Dulcolax (bisacodyl)] 10 mg suppository 10 mg ME QDAY PRN (Reason: constipation) Qty: 12 1RF triamterene-hydrochlorothiazid 37.5-25 mg tablet 1 tab PO QDAY Qty: 90 1RF ibandronate 150 mg tablet 150 mg PO MONTHLY Qty: 3 4RF metoprolol succinate [Toprol XL] 50 mg tablet extended release 24 hr 75 mg PO QDAY Qty: 135 1RF misoprostol [Cytotec] 200 mcg tablet 200 mcg vaginal ONCE Qty: 1 0RF Rx Instructions: Insert 1 tablet vaginally on the night prior to the procedure permethrin 5 % cream 1 applic topical ONCE Qty: 60 0RF Rx Instructions: leave on for 8 to14 hrs before washing off trospium 20 mg tablet 20 mg PO .Bedtime Qty: 180 3RF Rx Instructions: 1 tab by mouth each evening; then 1 tab by mouth daily (in morning) as needed. cyclobenzaprine 5 mg tablet 5 mg PO TID PRN (Reason: muscle spasm) Qty: 90 1RF levothyroxine 100 mcg tablet 100 mcg PO QDAY Qty: 90 0RF Follow Up/Referrals: Yang Pillai MD [Primary Care Provider] - Stand Alone [facility] Instructions
[2024-07-25 17:00] VITALS: BP 188/86; PULSE 66; TEMP 36.3; O2SAT 95; BMI 36.0
[2024-07-25 17:07] VITALS: PULSE 69; O2SAT 94
[2024-07-25 17:15] VITALS: PULSE 69; O2SAT 96
[2024-07-25 17:20] VITALS: BP 174/85; PULSE 66; RESP 18; O2SAT 94
--- OUTSIDE RECORDS SUMMARY | 2024-07-25 17:41 | XMS_ITS | Clinical Summary ---
Author Organization [employer] [facility] [employer] [facility] Address [address] [place] [address] Care Team Providers Care Geospatial Imagery Intelligence Analyst Name Role Phone Alvarado Hodgson MD Primary Care Provider [phone] Allergies Active Allergy Reactions Criticality Noted Date [...] once daily. Active fexofenadine-pseu doephedrine, 180-240 MG, (OROSEVELT-D 24 HOUR) 180-240 mg per tablet Take [...] Department Care Team Description 07/23/2024 Transcribe Orders [facility] [place] [address] Yang Pillai MD 06/05/2024 Lab Requisition [facility] [phone] TanyaMakenzie Craft MD from Last 3 Months [...] age 74 CHF~mother CAD, age 66 from [place] associated with flu~brother CAD, age 43 from [place]~no CA, DM, HTN Cancer-breast Paternal Aunt Relation [...] on file Legal Sex Female 5:49 AM RN LABOR AND DELIVERY Gender Identity Not on file Sexual Orientation [...] Description 08/22/2024 7:00 AM CDT Hospital Encounter [facility] [address] [place] [address] Aby Thompson MD [address] [address] 08/22/2024 7:00 AM CDT - 08/22/2024 9:21 AM CDT Surgery [facility] [address] [place] [address] Aby Thompson MD [address] [address] ROBOTIC ASSISTED TOTAL LAPAROSCOPIC HYSTERECTOMY, BILATERAL SALPINGO [...] Completed 04/01/2008 Medical Devices Implanted Type Area Organ Fixer Device Identifier Shelf Expiration Date Model / Serial / Lot Lens Iol 18.5 Dpt Tecnis - [id number] Implanted:Qty: 1 on 12/23/2010 at [facility] Left: Eye [employer] [id number]# / [id number] / Lens Iol 19.0 Dpt Tecnis - [id number] Implanted:Qty: 1 on 02/10/2011 at [facility] Right: Eye [employer] [id number]# / [id number] / Procedures Procedure Name Priority Date/Time Associated Diagnosis Comments LAB TRACKING EVENT Routine 06/04/2024 12 :00 PM RN LABOR AND DELIVERY PATH TISSUE EXAM Routine 06/04/2024 11:5 5 AM RN LABOR AND DELIVERY MLH1 AP SEND-OUT Routine 06/04/2024 11:5 5 AM RN LABOR AND DELIVERY POLE AP SENDOUT TEST AND BILLING Routine 06/04/2024 11:55 AM RN LABOR AND DELIVERY XR DXA BONE DENSITY 2 SITES AXIAL Routine 04/01/2008 10:58 AM RN LABOR AND DELIVERY Special Screening for Osteoporosis from Last 3 Months or Most Recently Relevant to Health Maintenance Results * LAB TRACKING EVENT (06/04/2024 12:00 PM RN LABOR AND DELIVERY) Other (Other) Client Collect / Unknown 06/04/2024 12:00 PM RN LABOR AND DELIVERY 06/05/2024 6:53 AM RN LABOR AND DELIVERY Makenzie Reyes MD LAB BILL ONLY Fi nal Result Performing Organization Address [facility] de Phone Number [facility] [address] [phone], [place] * POLE AP SENDOUT TEST AND BILLING (06/04/2024 11:55 AM RN LABOR AND DELIVERY) Other (Endometrial Curettings) 06/04/2024 11:55 AM RN LABOR AND DELIVERY 06/07/2024 9:57 AM RN LABOR AND DELIVERY Makenzie Reyes MD LABORATORY Fi nal Result Performing Organization Address [facility] Phone Number [facility] [address] [address], [place] * MLH1 AP SEND-OUT (06/04/2024 11:55 AM RN LABOR AND DELIVERY) Other (Endometrial Curettings) 06/04/2024 11:55 AM RN LABOR AND DELIVERY 06/10/2024 2:32 PM RN LABOR AND DELIVERY Makenzie Reyes MD LABORATORY Fi nal Result Performing Organization Address [facility] de Phone Number [facility] [address] [address], [place] * PATH TISSUE EXAM (06/04/2024 11:55 AM RN LABOR AND DELIVERY) Case Report Pathology Report Case: [id number] Authorizing Provider: Makenzie Reyes Collected: 06/04/2024 1155 MD Amie Ordering Location: [facility] Received: 06/05/2024 0856 Pathologist: Loraine Arriaza MD Specimens: A) - Endometrial Curettings B) - Left Labia, Left Labia Majus 4:24 PM [facility] Amendment 06/19/2024 - The tiss ue was sent to [facility] for MLH1 promoter methylation testing. See updated final diagnosis, comment, and attached report. 06/26/2024 - Tumor tissue was sent to the [facility] for POLE mutation testing. This amendment is to report the integrated histologic and molecular classification for the endometrial cancer. See the updated final diagnosis field and attached molecular report(s). 5 4:24 PM [facility] Final Diagnosis A) ENDOMETRIUM, CURETTAGE: [...] changes 2. Negative for malignancy 4:24 PM [facility] Amendment electronically signed by Loraine [...] peripheral blood would be reasonable. Please contact [facility] at [phone] if you have questions. 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 Therefore, the patient may be eligible for such therapies in the appropriate clinical setting. This case was seen in consultation with Dr. Cano. Dr. Arriaza notified Dr. Anderson on behalf of Dr. Reyes of preliminary results on 06/07/2024. 4:24 PM [facility] Clinical Information Post menopausal bleeding and thickened endometrium on ultrasound. Left labial majus mass (1x1 cm), vulvar varicosities and inflamed external hemorrhoids. Endometrial curettage and excision of vulvar lesion performed. 4:24 PM [facility] Gross Description A) Received in [...] in 1 cassette. TTP 06/05/2024 4:24 PM [facility] Microscopic Description The final diagnosis is [...] and negative in clear cell carcinoma component MI: Positive in endometrioid component and negative in clear cell carcinoma component A) DNA mismatch repair enzyme immunohistochemistry was performed using block A3 for MLH1, PMS2, MSH2, MSH6, and p53. Results are recorded in the final diagnosis field. 5 4:24 PM [facility] SYNOPTIC REPORTING Endometrium Biomarker Reporting [...] p53 Expression: Normal expression 5 4:24 PM [facility] Additional Information Integrated histologic and [...] classification in approximately 5% of endometrial cancers. MACHINE SCALLOP CUTTER TUMOR ANCILLARY TESTING PROTOCOL This patient's sample meets [facility] [place] MACHINE SCALLOP CUTTER oncology reflex testing criteria.* If there is a need for ancillary tests other than these, please call [facility] at [phone]. *MACHINE SCALLOP CUTTER Oncology reflex testing criteria: - Endometrial carcinoma [...] immunohistochemistry (with reflex FISH) performed. Interpreted at [facility], [facility] Laboratory - [address], [place] [address] Immunohistochemistry controls were reviewed and approved by the pathologist during this examination. 4:24 PM RN LABOR AND DELIVERY [facility] Other (Endometrial Curettings) 06/04/2024 11:55 AM RN LABOR AND DELIVERY 06/05/2024 8:56 AM RN LABOR AND DELIVERY Specimen (specimen) (Left Labia) 06/04/2024 11:55 AM RN LABOR AND DELIVERY 06/05/2024 8:56 AM RN LABOR AND DELIVERY us Makenzie Reyes MD PATHOLOGY/CYTOLOGY Edited Result - Final [facility] [address] [place] [address], [place] * XR DEXA BONE DENSITY 2 SITES (04/01/2008 10:58 AM RN LABOR AND DELIVERY) Anatomical Region Laterality Modality Spine, HIPS, HIPL, HIPR Other 04/01/2008 10:5 8 AM RN LABOR AND DELIVERY Narrative 04/02/2008 1:41 PM RN LABOR AND DELIVERY Please see scanned document for results of [...] 8:26 AM 12/23/2010 2:38 PM Care Teams Geospatial Imagery Intelligence Analyst Relationship Specialty Start Date End Date Alvarado Hodgson MD [address] [place] [address] PCP - General Family Practice 12/25/20
--- OUTSIDE RECORDS SUMMARY | 2024-07-25 17:41 | XMS_ITS | CCD ---
Author Name Interface, [id number] Address [address] [place] [address] Oncology Address [address] [place] [address] Care Team Providers Care Health Records Technology Teacher Name Role Phone Aby Thompson Unavailable Unava ilable Allergies and Adverse Reactions Care Plan Reason for Visit Encounters Diagnostic Results Medications Problems Procedures Social History Vital Signs
--- OUTSIDE RECORDS SUMMARY | 2024-07-25 17:41 | XMS_ITS | CCD ---
Author Name Interface, [id number] lity Address [address] [place] [address] [address] [address] [facility] Oncology Address [address] [facility] [address] [place] [address] Care Team Providers Care Inventory Planner Name Role Phone Aby Thompson Unavailable Unava ilable Allergies and Adverse Reactions Medication/Group Name Reaction Severity Date Penicillins Rash 06/24/2024 quinine 06/24/2024 peppermint 06/24/2024 Spearmint 06/24/2024 naproxen 07/19/2024 losartan Cough 07/19/2024 Carba mix (substance) 2024 oxycodone Nausea 06/24/2024 latex Rash 07/19/2024 tramadol 06/24/2024 morphine 07/19/2024 rofecoxib 06/24/2024 celecoxib 07/19/2024 montelukast Edema 07/19/2024 Aminoglycosides 07/19/2024 neomycin 07/19/2024 ibuprofen Swelling 07/19/2024 nystatin Rash 06/24/2024 Sulfamide 06/24/2024 Phenol 06/24/2024 propoxyphene 06/24/2024 menthol Diarrhea 07/19/2024 Care Plan Date Type Value 07/19/2024 APPOINTMENT [...] Status Ordered By Specimen Source Lab Address 07/25 Misc other lab See lands resource manager d Medications Date Name Route Dose Frequency Instructions Start Date End Date Status Acetaminophen Oral 1000.0 mg BID PRN active Miscellaneous Drug c hia seed oil- omega 3-6-9 1,000 mg ( 580 mg) active Fluticasone Nasal [place] 50 mcg/actuation active Triamterene-Hydroc hlorothiazide Oral Capsule 37.5 mg-25 mg QD active Fexofenadine Oral QD active Polyethylene Glycol Oral Powder a ctive Trospium Oral QHS act meño Ibandronate Oral Monthly active Metronidazole Topical Cream 0.75 % BID PRN active Cyclobenzaprine Oral TID PRN active Clobetasol Topical Cream 0.05 % BID PRN active Levothyroxine Oral orally 1.0 tablet daily quantity sufficient for 30 days; 3 refills active Multivitamins Oral Tablet active Lactobacillus Combination No.11 Oral QD active Bisacodyl Oral QD PRN ac tive Cholecalciferol Oral active Problems Diagnosis Status Date of Diagnosi s Endometrial carcinoma (disorder) Active Procedures Date Category Name Instructions Status 07/19/[address] chest/abdomen /pelvis w/ contrast Ordered 07/19/2024 Physician Order RTC post-op follow-up 2 w eeks post op with [facility] [place] Ordered 07/23/2024 Physician Order Referral to social [...]
--- OUTSIDE RECORDS SUMMARY | 2024-07-25 17:41 | XMS_ITS | Clinical Summary ---
Author Organization [facility] Address [address] [place] [address]. [place] [address] Care Team Providers Care Car Unloader Name Role Phone No Ref-Primary, Physician Primary [...] Active azelastine (ASTELIN) 0.1 % nasal spray [place] 1 spray into both nostrils 2 times daily Active triamcinolone (NASACORT) 55 MCG/ACT nasal aerosol [place] 2 sprays into both nostrils daily Active [...] Active vitamin D3 (CHOLECALCIFERO L) 1.25 MG (18198 UT) capsule Take 2,000 Units by mouth [...] on file Legal Sex Female 4:17 AM PERFECT BINDER OPERATOR Gender Identity Not on file Sexual Orientation Not on file Last Filed Vital Signs Vital Sign Reading Time Taken Comments Blood Pressure 118/74 06/07/2019 10:22 AM PERFECT BINDER OPERATOR Pulse - - Temperature - - Respiratory Rate - - Oxygen Saturation - - Inhaled Oxygen Concentration - - Weight 112.5 kg (248 lb) 06/07/2019 10:22 AM PERFECT BINDER OPERATOR Height 163.8 cm (5' 4.5) 06/07/2019 10:22 AM CS T Body Mass Index 41.91 06/07/2019 10:22 AM PERFECT BINDER OPERATOR Plan of Treatment Not on file Procedures Procedure Name Priority Date/Time Associated Diagnosis Comments ONCOLOGY CUSTOM GENE PANEL NGS TISSUE Routine 06/04/2024 11:55 AM PERFECT BINDER OPERATOR from Last 3 Months Results * Oncology Single Gene NGS Tissue (06/04/2024 11:55 AM PERFECT BINDER OPERATOR) Specimen Description Tissue: Fixed slides- [id number] 06/04/2024 11:55 AM PERFECT BINDER OPERATOR [facility] (LDL) Significant Results Detected Alterations of Known or Potential Pathogenicity: None Copy Number Variants: None TMB Score: 21.922 mut/Mb Microsatellite Result: MSI-High 06/04/2024 11:55 AM PERFECT BINDER OPERATOR [facility] (LDL) Interpretation No clinically relevant mutations were identified in the POLE gene. 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 The tumor mutational burden (TMB) is elevated, consistent with the MSI-H phenotype. Correlation with histology, clinical features, and immunoprofile is recommended to confirm the final molecular subtype assignment. Genes tested by POLE (Meograph): POLE DRUG RESPONSE Drugs Associated with Sensitivity for Other Tumor Types, Based on Genomic Analysis Drug: Avelumab Response to Drug Associated with Detected Alterations: Primary sensitivity Alteration(s) Detected: MSI-High Condition: Endometrial Adenocarcinoma Other Relevant Information: NCCN recommended for recurrent, metastatic, or high risk endometrial carcinoma with dMMR, as second line treatment. Line of Therapy: Metastatic Source: [facility] Drug: Durvalumab Response to Drug Associated with Detected Alterations: Primary sensitivity Alteration(s) Detected: MSI-High Condition: Endometrial Adenocarcinoma Other Relevant Information: FDA approved for adults with primary advanced or recurrent endometrial cancer that is dMMR, followed by durvalumab as a single agent. Line of Therapy: Recurrent Source: [facility] Drug: Dostarlimab Response to Drug Associated with Detected Alterations: Primary sensitivity Alteration(s) Detected: MSI-High Condition: Multiple tumor types Other Relevant Information: Please reference [facility] and/or FDA labels for additional information on clinical contexts related to this therapy match. Line of Therapy: Metastatic Source: [facility] Drug: Nivolumab, Ipilimumab Response to Drug Associated with Detected Alterations: Primary sensitivity Alteration(s) Detected: MSI-High Condition: Colorectal Cancer Other Relevant Information: Indicated for patients >=12 years old with MSI-High/dMMR metastatic colorectal cancer that has progressed following treatment with a fluoropyrimidine, oxaliplatin, and irinotecan. Line of Therapy: Metastatic Source: [facility] Drug: Nivolumab, Ipilimumab Response to Drug Associated with Detected Alterations: Primary sensitivity Alteration(s) Detected: TMB-High Condition: Multiple tumor types Other Relevant Information: Please reference current NCCN and/or FDA labels for additional information on clinical contexts related to this therapy match. Line of Therapy: Metastatic Source: [facility] Drug: Nivolumab Response to Drug Associated with Detected Alterations: Primary sensitivity Alteration(s) Detected: MSI-High Condition: Multiple tumor types Other Relevant Information: Please reference current [facility] and/or FDA labels for additional information on [...] National Comprehensive Cancer Network (www.nccn.org), ASCO = [place] Society of Clinical Oncology (www.asco.org), MCG: [employer] (www.GameGenetics.org) GENETIC ALTERATIONS TMB STATUS Biomarker: Tumor Mutation Jupiter (TMB) Result: TMB-High Score: 21.922 mut/Mb Therapeutic [...] None Detected Alterations of Uncertain Significance POLE [id number] Due to incomplete characterization of the variant [...] 25, 2024 10:44 PM) 06/04/2024 11:55 AM PERFECT BINDER OPERATOR [facility] (LDL) Test Details Coverage Unless otherwise [...] prepared using a custom-designed hybrid capture assay (Dotflux). The enriched DNA libraries undergo Next Generation Sequencing, and FASTQ files are processed through a custom bioinformatics pipeline to identify: sequence variants (single nucleotide variants and insertion-deletion variants), gene and chromosomal segment copy number gains and losses (copy number variants, CNV), microsatellite instability (MSI) and tumor mutation burden (TMB). Variant call files (vcf) are annotated with [employer] software and reviewed for data quality and [...] and its performance characteristics determined by the [facility]. It has not been [...] and (iii) rendered or confirmed the interpretation(s). Disruption Corpcology Disclaimer This report was produced using software licensed by [employer]. [employer] software is designed to be used in clinical applications solely as a tool to enhance medical utility and improve operational efficiency. The use of [employer] software is not a substitute for medical judgment and [employer] in no way holds itself out as having or providing independent medical judgment or diagnostic services. [employer] is not liable with respect to any treatment or diagnosis made in connection with this report. [employer] Rules Version: rules-0020 [employer] Application Version: [id number] -07_03-59 Electronic Signature Electronically signed/cosigned by: Tawny Diaz 06/20/24 06/04/2024 11:55 AM PERFECT BINDER OPERATOR [facility] (LDL) Fixed Tissue TOPOGRAPHY UNKNOWN / Unknown Non-blood Collection / Unknown 06/04/2024 11:55 AM PERFECT BINDER OPERATOR 06/07/2024 5:21 PM PERFECT BINDER OPERATOR Loraine Arriaza MD LAB - GENOMICS Final Result [facility] (LDL) [facility] [address] [facility] [place] [address], [facility] from Last 3 Months Insurance MEDICARE [facility] OUT OF STATE Care Teams Car Unloader Relationship Specialty Start Date End Date No Ref-Primary, Physician PCP - General 06/07/19
--- OUTSIDE RECORDS SUMMARY | 2024-07-25 17:41 | XMS_ITS | Continuity of Care Document ---
Author Organization [facility] Address [address] [address] [place] [address] Phone Care Team Providers Care Transportation Driver Name Role Phone Unavailable Unavailable Unavailable Allergies, [...] Providers Copied on Encounter Established Level 3 [facility], [address] [address], [place], [id number], [place] tel:[phone] [facility] GI Symptoms or Concerns (chief complaint) Abdominal bloatingConsti pation, unspecified constipation typeEsophageal dysphagia 3 No Information Referring Provider: Yang Pillai MD, [address] [place], [address]. tel:[phone] [facility], [address] [address], [place], [id number], [place] tel:[phone] [facility] No Information 3 Rasheed Sales. [address] [facility], [place], [id number], [place]. tel:[phone] Offic/outpt E&m Estab Low-mod [facility], [address] [address], [place], [id number], [place] tel:[phone] [facility] GI Symptoms or Concerns (chief complaint) Constipation, unspecified constipation typeAbdominal bloatingEsopha geal dysphagia 3 No Information Referring Provider: Referral Self, USE FOR SELF REFERRALS. Telephone E&M II 11-20 Min CEM [facility], [address] [address], [place], [id number], [place] tel:[phone] [facility] GI Symptoms or Concerns (chief complaint) Constipation, unspecified constipation type 3 No Information Referring Provider: Yang Pillai MD, [address] [place], [address]. tel:[phone] [facility], [address] [address], [place], [id number], [place] tel:[phone] [facility] No Information 3 Rasheed Sales. [address] [facility], [place], [place], [id number], [place]. tel:[phone] Family History Family Member Type Diagnosis Age [...] bi-directional interface ; Source: Other Registry Novel [id number], all formulations administered Note: [facility] bi-direct ional [...] Registry Payers Payer name Insurance type Covered green party ID Authoriza tion(s) Medicare NGS MB [id number] [id number] Social History Type Description Quantity Date Captured [...] She had colonoscopy that was done at [facility], this was completed on 11/08/2004, and showed [...] reports a history of a colonoscopy at [facility], in the past 5 years. We will [...] the patient portal or call my patient healthcare business analyst at [phone] and then at EXT. 2995. Thank you [...] the patient portal or call my patient healthcare business analyst at [phone] and then at EXT. 2995. Thank you [...] the patient portal or call my patient healthcare business analyst at [phone] and then at EXT. 2995. Thank you [...]
== END 2024-07-25 17:42 | disposition home or self-care (01) ==
LOC: ED 17:39
PROVIDERS: Emergency Provider Family Medicine; PCP Family Medicine
DX: I71.21 Aneurysm of the ascending aorta, without rupture (principal); I71.019 Dissection of thoracic aorta, unspecified; I10 Essential (primary) hypertension
CPT/HCPCS: 97110; 97140; 99284

== ENCOUNTER 2024-08-15 11:00 | Outpatient (RCR) | payer MEDICARE, BC, SELFPAY ==
--- NOTE | 2024-07-10 15:15 | PT.OPE ---
[facility] Eval PT [facility] Outpatient Eval Start: 07/10/24 13:21 Freq: Status: Active Protocol: Document 07/10/24 15:14 CJT (Rec: 07/10/24 15:15 CJT [id number]) E-signed By Benton Gandhi PT Physical Therapy Outpatient Evaluation Insurance Information Recert Due Date 10/08/24 Insurance Name Medicare B Medical Diagnosis M62.838 - Other muscle spasm M62.830 - Muscle spasm of back M54.9 - Dorsalgia, unspecified G89.29 - Other chronic pain Treating Diagnosis M54.5 - low back pain M25.561 - R knee pain M25. 562 - L knee pain Imaging Report Information Lumbar X-Ray: 1. Qrkn-cu-hruywcba lumbar degenerative changes. 2. Suspected abdominal aortic aneurysm can be confirmed by ultrasound, if not recently performed. 3. Right upper quadrant density may be outside the patient. This was not present on the recent comparison chest radiograph and may be of no clinical significance. Referring Yang Salguero MD Subjective Preferred Name Stephani Bishop Her knees are bothering her, she feels like its hard to move. Her back has been bothering her the last 5-7 days, with insidious onset. She has pain/clunking with bending forward or to the side . Her tailbone bothers her, sleeps in her recliner. Walking doesn't feel good although it used to help relieve knee and back pain. She had a spasm on the left side of the low back going all the way up to the bottom of her shoulder blade. Stretching helped this. This isn't bothering her as much as her knees are. She hurt her L knee back in 2001. Getting up from sitting and prolonged standing hurts her knees. Knee pain is worse in the AM. Uses walker when moving around, she feels like her balance is not the best. Feeling weakness in her legs today. Date of Last Physician Visit 06/04/24 Current Work Status Retired Precautions Treatment Precautions/Contraindications Postmenopausal bleeding (Acute ) N95.0 - Postmenopausal bleeding (ICD-10) COVID (Acute) U07.1 - COVID-19 (ICD-10) Enrolled in chronic care management (Chronic) Z78.9 - Other specified health status (ICD-10) Abdominal aortic aneurysm ( Acute) I71.40 - Abdominal aortic aneurysm, without rupture, unspecified (ICD-10) Bronchitis (Acute) J40 - Bronchitis, not specified as acute or chronic (ICD-10) Cough (Acute) R05.9 - Cough, unspecified ( ICD-10) Aortic valve stenosis with insufficiency (Acute) I35.2 - Nonrheumatic aortic ( valve) stenosis with insufficiency (ICD-10) Medicare annual wellness visit , subsequent (Acute) Z00.00 - Encounter for general adult medical examination without abnormal findings (ICD -10) Muscle spasm (Acute) M62.838 - Other muscle spasm ( ICD-10) Shortness of breath (Acute) R06.02 - Shortness of breath ( ICD-10) Chronic constipation (Chronic) K59.09 - Other constipation ( ICD-10) Elevated parathyroid hormone ( Acute) E34.9 - Endocrine disorder, unspecified (ICD-10) Hypercalcemia (Acute) Normal albumin minimally elevated since 2017 E83.52 - Hypercalcemia (ICD-10 ) Pain of left scapula (Acute) M89.8X1 - Other specified disorders of bone, shoulder ( ICD-10) Chest wall pain (Acute) R07.89 - Other chest pain (ICD -10) Back muscle spasm (Acute) M62.830 - Muscle spasm of back (ICD-10) Urinary incontinence (Acute) R32 - Unspecified urinary incontinence (ICD-10) Seasonal allergic rhinitis ( Chronic 07/02/12) J30.2 - Other seasonal allergic rhinitis (ICD-10) Rosacea (Chronic 07/02/12) L71.9 - Rosacea, unspecified ( ICD-10) Otalgia (Acute) H92.09 - Otalgia, unspecified ear (ICD-10) Osteoporosis (Chronic) M81.0 - Age-related osteoporosis without current pathological fracture (ICD-10) Obstructive sleep apnea syndrome (Chronic 06/07/10) G47.33 - Obstructive sleep apnea (adult) (pediatric) (ICD -10) Malignant neoplasm of breast ( Acute 06/07/10) C50.919 - Malignant neoplasm of unspecified site of unspecified female breast (ICD -10) Lung nodule (Chronic 07/02/12) R91.1 - Solitary pulmonary nodule (ICD-10) Lichen planus (Chronic ) L43.9 - Lichen planus, unspecified (ICD-10) Hypothyroidism (Chronic ) E03.9 - Hypothyroidism, unspecified (ICD-10) Hypertension (Chronic) I10 - Essential (primary) hypertension (ICD-10) Hearing loss (Chronic) H91.90 - Unspecified hearing loss, unspecified ear (ICD-10) Fecal impaction (Resolved) K56.41 - Fecal impaction (ICD- 10) Epiploic appendagitis (Acute) K63.89 - Other specified diseases of intestine (ICD-10) Edema of both lower extremities (Acute) R60.0 - Localized edema (ICD- 10) 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) M51.36 - Other intervertebral disc degeneration, lumbar region (ICD-10) Chronic sinusitis (Chronic) J32.9 - Chronic sinusitis, unspecified (ICD-10) Chronic back pain (Chronic 12/04) M54.9 - Dorsalgia, unspecified (ICD-10) G89.29 - Other chronic pain ( ICD-10) Aneurysm of thoracic aorta ( Chronic 07/02/12) I71.2 - Thoracic aortic aneurysm, without rupture (ICD -10) Therapy Limitations/Systems Review Not Limited Objective Other/Pertinent Objective Lumbar ROM Extension - unable Flexion - can reach toes with knees bent, needs to hold onto walker R/L Side Bend - moderate limitations bilaterally R/L Rotation - moderate limitations bilaterally R Hip Strength Flexion - 4/5 MMT Abduction - 5/5 MMT Adduction - 5/5 MMT L Hip Strength Flexion - 4/5 MMT Abduction - 5/5 MMT Adduction - 5/5 MMT R knee Extension - 5/5 MMT R Knee Flexion - 4+/5 MMT L knee Extension - 5/5 MMT L knee Flexion - 4+/5 MMT R ankle DF - 4+/5 MMT L ankle DF - 4/5 MMT Palpation: pt reports pain/ tenderness with palpation to L >R lumbar paraspinals, QL, PSIS Gait: ambulates with FWW, short stride length and flat foot strike bilaterally 5 Times sit to Stand: 30 seconds DTRs: 2+ patellar and Achilles tendon bilaterally Assessment Assessment/Impression Stephani is a very pleasant 89 year old Female who presents to our clinic for evaluation and treatment of low back pain . Pt also complains of B knee pain as well. Pt presents with deficits in lumbar AROM and LE strength (see objective). Today's evaluation was limited due to pt not being able to lay prone, supine, etc., however, pts pain appears to be due to increased mm tissue tension in her paraspinals as well as arthritis in her spine (see x-ray). She will benefit from consistent performance of spine mobility exercises and LE stretching as well as spending more time on her feet , as she is able. The nature of the pts condition was explained and all questions were answered to the pts satisfaction. Skilled PT services are medically necessary to address deficits and return patient to highest level of function. Recommend physical therapy sessions 1/ week for 4 weeks. Pt agrees with this plan, however has upcoming hysterectomy that may interfere with this plan. Printout of HEP was given for I completion and pt gives verbal understanding of each exercise. Primary Functional Limitations Standing, walking, tranfsers Plan of Care Rehabilitation Potential Good Physical Therapy Goals STG - To be completed in 2-3 weeks: 1. Pt will report consistent performance of HEP to encourage improved spine mobility and reduce pain in lumbar spine. 2. Pt will demo 5 times sit to stand test completion in 20 seconds or less as indication of improved functional strength. LTG - To be completed in 6 weeks: 1. Pt to be I with HEP so that they may I manage progression of symptoms. 2. Pt will report ability to sleep through the night without waking due to pain so that they may wake well rested with reduced mental fatigue during waking hours. 3. Pt will demo at least 4+/5 MMT for bilateral hip flexion strength to make for ease of ambulation with 4WW. Treatment Plan/Direct Interventions Electrical Stimulation,Heat, Joint Mobilization,Manual Therapy,Neuromuscular Re-ed, Self-Care/Home Management, Therapeutic Activities, Therapeutic Exercises Frequency/Duration 1/week for 4 weeks Patient Will Be Discharged From Therapy Completion of LTG(s),Skills Plateau,Independent w/HEP, Independently Progressing Evaluation Billing Untimed Code Treatment Minutes 45 PT Eval No Charge No Complexity Low Certification Information Initial Certification Date 07/10/24 Ending Certification Date 10/08/24 Provider Signature Required Yes Provider Signature Shows Agreement With POC & Medical Necessity Physician NPI Number Write NPI# Here Physician Comment/Change : Physician Signature & Date Requested Please Sign/Date Here
== END 2024-12-13 23:59 | disposition home or self-care (01) ==
PROVIDERS: PCP Family Medicine; Visit Provider Family Medicine
DX: M62.830 Muscle spasm of back (principal); M54.50 Low back pain, unspecified; G89.29 Other chronic pain; M25.562 Pain in left knee; M25.561 Pain in right knee; Z51.89 Encounter for other specified aftercare
CPT/HCPCS: 97110; 97140; 97161